=== PATIENT | female | born 1990 | race Caucasian/White ===

== ENCOUNTER → 2016-07-24 | Outpatient (CLI) | payer MEDICAID ==
--- NOTE | 2016-07-24 11:47 | US ---
EXAMINATION: Limited abdominal ultrasound HISTORY: Swelling COMPARISON: None TECHNIQUE: Grayscale, color Doppler, and real-time images obtained of the region of concern. FINDINGS: There is a slightly hypoechoic to isoechoic mass within the region of concern which appear s to have intraperitoneal continuity. There is a trace fluid along the inferior aspect. No abnormal color Doppler flow is noted. Peristalsis is noted to suggest bowel. IMPRESSION: Probable fat-containing periumbilical hernia within the region of concern.
== END | disposition home or self-care (01) ==
LOC: MW.US 08:49
PROVIDERS: ATTEND Physician Assistant
DX: R19.05 Periumbilic swelling, mass or lump (principal)
CPT/HCPCS: 76705; 76705-26

== ENCOUNTER 2016-09-07 08:36 | Day surgery (SDC) | payer MEDICAID ==
[~2016-09-07 08:36] MED LIST: Bupivacaine 0.5% 30 ML SDV ONE; Lactated Ringers 1,000 ML IV SCH; Sodium Chloride 0.9% 10 ML Syringe FLUSH PRN; Sodium Chloride 0.9% 2.5 ML Syringe FLUSH PRN; ceFAZolin 1 GM Vial ONE
[2016-09-07] MEDS ORDERED: Rocuronium 10 MG/ML 10 ML Syringe ONE (09:09)
[2016-09-07] MEDS ORDERED: Propofol 200 MG/20 ML SDV ONE (09:09)
[2016-09-07] MEDS ORDERED: Ondansetron 4 MG/2 ML SDV ONE (09:09)
[2016-09-07] MEDS ORDERED: fentaNYL 250 MCG/5 ML SDV ONE (09:09)
[2016-09-07] MEDS ORDERED: Dexamethasone 4 MG/ML 5 ML MDV ONE (09:09)
[2016-09-07] MEDS ORDERED: Midazolam 1 MG/ML 2 ML SDV ONE (09:09)
--- NOTE | 2016-09-07 09:17 | PCM.PREANE ---
Preanesthetic Assessment - Anesthesia/Transfusion/Family Hx Anesthesia History: Prior Anesthesia Without Reaction Family History of Anesthesia Reaction: No Transfusion History: No Prior Transfusion(s) - Review of Systems General: No Symptoms Pulmonary: No Symptoms Cardiovascular: No Symptoms Gastrointestinal: No symptoms Neurological: No Symptoms Other: Reports: None - Physical Assessment NPO Status Date: 09/06/16 Height: 1.57 m Weight: 73.936 kg ASA Class: 2 Mental Status: Alert & Oriented x3 Airway Class: Mallampati = 1 Dentition: Reports: Normal Dentition ROM/Head Extension: Full Lungs: Clear to auscultation, Normal respiratory effort Cardiovascular: Regular Rate, Regular Rhythm - Lab Values: Laboratory Last Values Urine HCG, Qual NEGATIVE (NEGATIVE) 09/07/16 08:45 - Allergies Allergies/Adverse Reactions: Allergies Allergy/AdvReac Type Severity Reaction Status Date / Time bupropion HCl Allergy Hives Verified 09/04/16 16:51 [From Wellbutrin] - Anesthesia Plan Pre-Op Medication Ordered: None - Acknowledgements Anesthesia Type Planned: General Anesthesia Pt an Appropriate Candidate for the Planned Anesthesia: Yes Alternatives and Risks of Anesthesia Discussed w Pt/Guardian: Yes Pt/Guardian Understands and Agrees with Anesthesia Plan: Yes PreAnesthesia Questionnaire HEENT History: Reports: None Other HEENT History: wears glasses/contacts Cardiovascular History: Reports: None Respiratory History: Reports: None Gastrointestinal History: Reports: None Other Gastrointestinal History: abdominal hernia Genitourinary History: Reports: None SUPPORT DBA History: Reports: None Musculoskeletal History: Reports: None Other Musculoskeletal History: left arm fracture Neurological History: Reports: None Psychiatric History: Reports: None Endocrine/Metabolic History: Reports: None Hematologic History: Reports: None Immunologic History: Reports: None Oncologic (Cancer) History: Reports: None Dermatologic History: Reports: None - Past Surgical History Head Surgeries/Procedures: Reports: None HEENT Surgical History: Reports: Tonsillectomy Cardiovascular Surgical History: Reports: None Respiratory Surgical History: Reports: None GI Surgical History: Reports: Other (See Below) Other GI Surgeries/Procedures: previous laparoscopic umbilical exploration, no hernia found Female Surgical History: Reports: None Endocrine Surgical History: Reports: None Neurological Surgical History: Reports: None Musculoskeletal Surgical History: Reports: None Oncologic Surgical History: Reports: None - SUBSTANCE USE Smoking Status *Q: Current Every Day Smoker Tobacco Use Within Last Twelve Months: Cigarettes Second Hand Smoke Exposure: Yes Recreational Drug Use History: No Recreational Drug Type: Reports: Amphetamines (Speed) (Neg UDS since 06/21/2015, last positive test was May of this year. Does expect to be tested.) - HOME MEDS Home Medications: Home Meds . [No Known Home Meds] 09/04/16 [History] - CURRENT (IN HOUSE) MEDS Current Meds: Current Medications Lactated Ringer's (Ringers, Lactated) 1,000 mls @ 125 mls/hr IV ASDIRECTED MINNIE Last Admin: 09/07/16 09:05 Dose: 125 mls/hr Sodium Chloride (Saline Flush) 10 ml FLUSH ASDIRECTED PRN PRN Reason: Keep Vein Open Sodium Chloride (Saline Flush) 2.5 ml FLUSH ASDIRECTED PRN PRN Reason: Keep Vein Open Discontinued Medications Bupivacaine HCl (Marcaine 0.5%) Confirm Administered Dose 30 ml .ROUTE .STK-MED ONE Stop: 09/07/16 07:18 Cefazolin Sodium (Ancef) Confirm Administered Dose 1 gm .ROUTE .STK-MED ONE Stop: 09/07/16 07:18 Dexamethasone (Dexamethasone) Confirm Administered Dose 20 mg .ROUTE .STK-MED ONE Stop: 09/07/16 09:10 Fentanyl (Sublimaze) Confirm Administered Dose 250 mcg .ROUTE .STK-MED ONE Stop: 09/07/16 09:10 Lidocaine HCl (Xylocaine-Mpf 1%) Confirm Administered Dose 5 ml .ROUTE .STK-MED ONE Stop: 09/07/16 09:10 Midazolam HCl (Versed 1 Mg/Ml) Confirm Administered Dose 2 mg .ROUTE .STK-MED ONE Stop: 09/07/16 09:10 Ondansetron HCl (Zofran) Confirm Administered Dose 4 mg .ROUTE .STK-MED ONE Stop: 09/07/16 09:10 Propofol (Diprivan 20 Ml) Confirm Administered Dose 200 mg .ROUTE .STK-MED ONE Stop: 09/07/16 09:10 Rocuronium Victoria (Zemuron) Confirm Administered Dose 100 mg .ROUTE .STK-MED ONE Stop: 09/07/16 09:10
[2016-09-07] MEDS ORDERED: Ketorolac 30 MG/ML SDV ONE (12:04)
--- NOTE | 2016-09-07 12:23 | PCM.OPNOTE ---
- General Post-Op/Procedure Note Date of Surgery/Procedure: 09/07/16 Operative Procedure(s): Ventral hernia repair Findings: 2.5 x 2 cm supraumbilical ventral hernia Pre Op Diagnosis: umbilical hernia Post-Op Diagnosis: ventral hernia Anesthesia Technique: General ET tube Primary Surgeon: Clary JAMES in mLs: 10 Condition: Good
[2016-09-07] MEDS: fentaNYL 100 MCG/2 ML SDV IVPUSH PRN ×2 (12:29→12:34)
[2016-09-07] MEDS ORDERED: Acetaminophen/oxyCODONE 325-5 MG Tab PO ONE (13:19)
--- NOTE | 2016-09-07 13:28 | PCM.POSTAN ---
POST ANESTHESIA ASSESSMENT - MENTAL STATUS Mental Status: alert, oriented - RESPIRATORY Respiratory Status: respiratory rate WNL, airway patent - CARDIOVASCULAR CV Status: pulse rate WNL, blood pressure stable - GASTROINTESTINAL GI Status: no symptoms - PAIN Pain Score: 4 - POST OP HYDRATION Hydration Status: adequate & stable
--- NOTE | 2016-09-07 14:34 | PCM48HPAN ---
Post Anesthesia Note - EVALUATION WITHIN 48HRS OF ANESTHETIC Vital Signs in Normal Range: Yes Patient Participated in Evaluation: Yes Respiratory Function Stable: Yes Airway Patent: Yes Cardiovascular Function Stable: Yes Hydration Status Stable: Yes Pain Control Satisfactory: Yes Nausea and Vomiting Control Satisfactory: Yes Mental Status Recovered: Yes
[2016-09-07 15:03] VITALS: BP 109/62
--- NOTE | 2016-09-08 02:26 | OR ---
SURGEON: WATSON CHI MD DATE OF PROCEDURE: 09/07/2016 PREOPERATIVE DIAGNOSIS: Umbilical hernia. POSTOPERATIVE DIAGNOSIS: Ventral hernia. PROCEDURE PERFORMED: Supraumbilical ventral hernia repair with mesh. ANESTHESIA: General endotracheal anesthesia. FLUIDS: 2900. ESTIMATED BLOOD LOSS: 10 mL. FINDINGS: Large fat containing supraumbilical ventral hernia. COMPLICATIONS: None. INDICATIONS: The patient is a 26-year-old female, who presents with a supraumbilical mass. The patient had previously undergone an attempted laparoscopic repair, but was not found at the time to have a hernia, so the procedure was aborted. The patient had two more children and the mass has gotten subsequently larger with each . It is now causing her pain on a daily basis. A CT was performed that showed a 3 cm supraumbilical ventral hernia containing omentum that was incarcerated. Decision was made to proceed with operative repair. We discussed the laparoscopic and open approach, however, given her previous laparoscopic attempt, I decided we would perform this open. The patient and I discussed the procedure as well as expected perioperative course. I discussed the risks, including bleeding, infection, or damage to surrounding structures, including perforation. Given the size of the ventral defect on CT, I will most likely be using mesh. The patient verbalized understanding and wishes to proceed. PROCEDURE IN DETAIL: The patient was brought to the operating room and placed on the OR table in supine position. A time-out was completed verifying the patient's name, age, date of , allergies, and procedure to be performed. General endotracheal anesthesia was induced. The abdomen was prepped and draped in usual standard fashion. The upper midline of the abdomen was anesthetized with 0.5% Marcaine plain. A 10 cm incision was made just superior to the umbilicus over the abdominal bulge. Cautery was then used to dissect down into the subcutaneous tissues. I encountered a large fat containing hernia. Using cautery and blunt dissection, I dissected around this mass down to the level of the fascia. Using Metzenbaum scissors, I cleared away the fascia around the base of the hernia neck. Once this was done, I entered the hernia sac and noted there to be preperitoneal fat and omentum in the sac. I attempted to reduce this back into the abdomen, but was unable to do so successfully. Given that I had explored the sac and it only contained fat, the decision was made to transect this instead of trying to reduce it back into the abdomen. A Harmonic Scalpel was used to come across this at the level of the fascia. The hernia sac contained fat were then sent to pathology labeled as hernia sac. The fascial defect was cleared away from any of its underlying attachments. It measured 2 x 2 cm in size. The decision was made to use mesh. A 4 cm Ventralex patch was then brought into the field. This was placed underneath the fascial defect and anchored 1-2 cm back along the fascia using 0 Ethibond sutures. This provided a good underlay with no involvement of any of the intraabdominal structures in the mesh. Once the mesh was secured to the fascia, I then closed the fascial defect with [id number] 0 Ethibond sutures. The wound was then irrigated and hemostasis ensured with cautery. The subcutaneous tissue was closed with interrupted 3-0 Vicryl in the subcutaneous fat and a running 4-0 Monocryl suture in the subcuticular space. Steri-Strips and sterile dressings were applied. All counts were complete and correct at the end of the case. The patient was extubated and taken to PACU in stable condition. JOSE ARAUZ /[id number]
== END 2016-09-07 14:25 | disposition home or self-care (01) ==
LOC: MW.SDS 08:36
PROVIDERS: ATTEND Surgery
DX: K42.9 Umbilical hernia without obstruction or gangrene (principal); E66.3 Overweight; Z88.8 Allergy status to other drugs, medicaments and biological substances; Z72.0 Tobacco use; F17.210 Nicotine dependence, cigarettes, uncomplicated
CPT/HCPCS: 49585; 81025; A9270; C1781; J0690; J1100; J1885; J2250; J2405; J3010; J7120; 00750; 88302; J2704

== ENCOUNTER 2017-10-02 05:02 | Inpatient (IN) | payer MEDICAID ==
[2017-10-02] MEDS ORDERED: Tranexamic Acid 1,000 MG in Sodium Chloride 0.9% 100 ML IV PRN (05:10)
[2017-10-02] MEDS ORDERED: Misoprostol 200 MCG Tab PO PRN (05:10)
[2017-10-02] MEDS ORDERED: Water For Irrigation,Sterile 1,000 ML Container IRR PRN (05:10)
[2017-10-02] MEDS ORDERED: Lidocaine 1% 50 ML MDV INJECT PRN (05:10)
[2017-10-02] MEDS ORDERED: Sodium Chloride 0.9% 2.5 ML Syringe FLUSH PRN (05:10)
[2017-10-02] MEDS ORDERED: Nalbuphine 10 MG/1 ML Vial IVPUSH PRN (05:10)
[2017-10-02] MEDS ORDERED: Sodium Chloride 0.9% 10 ML Syringe FLUSH PRN (05:10)
[2017-10-02] MEDS ORDERED: Carboprost Tromethamine 250 MCG/1 ML Amp IM PRN (05:10)
[2017-10-02] MEDS ORDERED: Methylergonovine 0.2 MG/1 ML Amp IM PRN (05:10)
[2017-10-02] MEDS ORDERED: Oxytocin/0.9 % Sodium Chloride 30 UNIT/500 ML BAG IV SCH ×2 (05:15→15:15)
[2017-10-02] MEDS ORDERED: Terbutaline 1 MG/ML SDV SUBCUT PRN ×2 (06:11→15:15)
[2017-10-02] MEDS ORDERED: Misoprostol 25 MCG (1/4 of 100 MCG) Tab VAG PRN ×2 (06:11→15:15)
[2017-10-02] MEDS ORDERED: Misoprostol 25 MCG (1/4 of 100 MCG) Tab PO ONE (06:13)
[2017-10-02] MEDS ORDERED: Misoprostol 25 MCG (1/4 of 100 MCG) Tab VAG SCH ×2 (06:15→15:15)
[2017-10-02] MEDS ORDERED: Nalbuphine 10 MG/ML 10 ML MDV IVPUSH PRN (07:30)
--- NOTE | 2017-10-02 08:51 | PCM.LDHP ---
L&D History of Present Illness - General Date of Service: 10/02/17 Admit Problem/Dx: Patient Status Order with Admit Dx/Problem 10/02/17 05:10 Patient Status [ADT] Routine Admission Diagnosis/Problem Admission Diagnosis/Problem 10/02/17 08:46 27yo EDC 10/09/2017 39 0/7wk A+, RI, GBS neg. Hx of drug us all UDS neg this . Active smoker Source of Information: Patient History Limitations: Reports: No Limitations - History of Present Illness Improves with: Reports: None Worsens with: Reports: None Associated Symptoms: Reports: N - Related Data Allergies/Adverse Reactions: Allergies Allergy/AdvReac Type Severity Reaction Status Date / Time bupropion HCl Allergy Hives Verified 09/04/16 16:51 [From Wellbutrin] Home Medications: Home Meds . [No Known Home Meds] 09/04/16 [History] Past Medical History HEENT History: Reports: None Other HEENT History: wears glasses/contacts Cardiovascular History: Reports: None Respiratory History: Reports: None Gastrointestinal History: Reports: None Other Gastrointestinal History: abdominal hernia Genitourinary History: Reports: None SVP History: Reports: Musculoskeletal History: Reports: Fracture Other Musculoskeletal History: left arm fracture Neurological History: Reports: None Psychiatric History: Reports: None Endocrine/Metabolic History: Reports: None Hematologic History: Reports: None Immunologic History: Reports: None Oncologic (Cancer) History: Reports: None Dermatologic History: Reports: None - Infectious Disease History Infectious Disease History: Reports: Chicken Pox - Past Surgical History Head Surgeries/Procedures: Reports: None HEENT Surgical History: Reports: Adenoidectomy, Tonsillectomy Cardiovascular Surgical History: Reports: None Respiratory Surgical History: Reports: None GI Surgical History: Reports: Hernia, Abdominal Female Surgical History: Reports: None Endocrine Surgical History: Reports: None Neurological Surgical History: Reports: None Musculoskeletal Surgical History: Reports: None Oncologic Surgical History: Reports: None Social & Family History - Family History HEENT: Reports: None Cardiac: Reports: Hypertension Respiratory: Reports: None GI: Reports: None : Reports: None OBGYN: Reports: Musculoskeletal: Reports: None Neurological: Reports: CVA, Seizure Psychiatric: Reports: None Endocrine/Metabolic: Reports: Diabetes, Type I Hematologic: Reports: None Immunologic: Reports: None Dermatologic: Reports: None Oncologic: Reports: None - Tobacco Use Smoking Status *Q: Current Every Day Smoker Years of Tobacco use: 13 Packs/Tins Daily: 0.5 Used Tobacco, but Quit: No Second Hand Smoke Exposure: Yes - Caffeine Use Caffeine Use: Reports: Soda - Recreational Drug Use Recreational Drug Use: No H&P Review of Systems - Review of Systems: Review Of Systems: See Below General: Reports: No Symptoms HEENT: Reports: No Symptoms Pulmonary: Reports: No Symptoms Cardiovascular: Reports: No Symptoms Gastrointestinal: Reports: No Symptoms Genitourinary: Reports: No Symptoms Musculoskeletal: Reports: No Symptoms Skin: Reports: No Symptoms Psychiatric: Reports: No Symptoms Neurological: Reports: No Symptoms Hematologic/Lymphatic: Reports: No Symptoms Immunologic: Reports: No Symptoms L&D Exam - Exam Exam: See Below - Vital Signs Weight: 84.368 kg - OB Specific Contraction Intensity: Mild to Moderate Movement: Active Heart Tones: Present Heart Rate (FHR) Variability: Moderate (6-25 bmp) Presentation: Vertex - Lee Score Lee Score Cervix Position: Midposition Lee Score Consistency: Soft Lee Score Effacement: 51-70% Lee Score Dilation: 3-4 cm Lee Score 's Station: -2 Lee Score Total: 8 - Exam General: Alert, Oriented, Cooperative HEENT: Hearing Intact Lungs: Clear to Auscultation, Normal Respiratory Effort Cardiovascular: Regular Rate, Regular Rhythm, Normal S1, Normal S2 GI/Abdominal Exam: Normal Bowel Sounds, Soft, Non-Tender, No Organomegaly, No Distention, No Abnormal Bruit, No Mass, Pelvis Stable Rectal Exam: Deferred Genitourinary: Cervical dilitation Back Exam: Normal Inspection, Full Range of Motion Extremities: Normal Inspection, Normal Range of Motion, Non-Tender, No Pedal Edema, Normal Capillary Refill Skin: Warm, Dry, Intact Neurological: Cranial Nerves Intact, Reflexes Equal Bilateral, Strength Equal Bilateral, Normal Gait, Normal Speech, Normal Tone Psychiatric: Alert, Normal Affect, Normal Mood - Patient Data Lab Results Last 24 hrs: Laboratory Results - last 24 hr 10/02/17 10/02/17 Range/Units 05:19 05:19 WBC 18.14 H (4.0-11.0) K/uL RBC 3.80 L (4.30-5.90) M/uL Hgb 12.8 (12.0-16.0) g/dL Hct 36.6 (36.0-46.0) % MCV 96.3 (80.0-98.0) fL MCH 33.7 H (27.0-32.0) pg MCHC 35.0 (31.0-37.0) g/dL RDW Std Deviation 48.7 (28.0-62.0) fl RDW Coeff of Jovita 14 (11.0-15.0) % Plt Count 240 (150-400) K/uL MPV 12.40 H (7.40-12.00) fL Nucleated RBC % 0.0 /100WBC Nucleated RBCs # 0 K/uL Blood Type A POSITIVE Antibody Screen NEGATIVE Result Diagrams: 10/02/17 05:19 - Problem List (1) Supervision of normal IUP (intrauterine ) in multigravida SNOMED Code(s): 909031330, 703943214, 915097077 ICD Code: Z34.80 - ENCOUNTER FOR SUPRVSN OF NORMAL , UNSP TRIMESTER Status: Acute Priority: High Current Visit: Yes Qualifiers: Trimester: third trimester Qualified Code(s): Z34.83 - Encounter for supervision of other normal , third trimester (2) Smoker SNOMED Code(s): 60125793 ICD Code: F17.200 - NICOTINE DEPENDENCE, UNSPECIFIED, UNCOMPLICATED Status : Acute Priority: Medium Current Visit: Yes Problem List Initiated/Reviewed/Updated: Yes Orders Last 24hrs: Active Orders 24 hr Category Date Time Status Patient Status [ADT] Routine ADT 10/02/17 05:10 Active Bedrest Bathroom Privileges [RC] ASDIRECTED Care 10/02/17 06:11 Active Communication Order [RC] ASDIRECTED Care 10/02/17 06:11 Active Communication Order [RC] ASDIRECTED Care 10/02/17 06:11 Active Communication Order [RC] ASDIRECTED Care 10/02/17 06:11 Active Heart Tones [RC] CONTINUOUS Care 10/02/17 05:10 Active May Shower [RC] ASDIRECTED Care 10/02/17 05:10 Active Notify Provider [RC] PRN Care 10/02/17 05:10 Active Notify Provider [RC] PRN Care 10/02/17 06:11 Active Notify Provider [RC] PRN Care 10/02/17 06:11 Active Notify Provider [RC] STAT Care 10/02/17 06:11 Active Oxygen Therapy [RC] ASDIRECTED Care 10/02/17 06:11 Active Up ad Rosanne [RC] ASDIRECTED Care 10/02/17 05:10 Active Vaginal Exam [RC] PRN Care 10/02/17 05:10 Active Vaginal Exam [RC] PRN Care 10/02/17 06:11 Active Vital Signs [RC] PER UNIT ROUTINE Care 10/02/17 05:10 Active Vital Signs [RC] PER UNIT ROUTINE Care 10/02/17 06:11 Active Regular Diet [DIET] Diet 10/02/17 Breakfast Active Carboprost Tromethamine [Hemabate DS] Med 10/02/17 05:10 Active 250 mcg IM ASDIRECTED PRN Lactated Ringers [Ringers, Lactated] 1,000 ml Med 10/02/17 05:15 Active IV ASDIRECTED Lidocaine 1% [Xylocaine 1%] Med 10/02/17 05:10 Active 50 ml INJECT .ONCE PRN Methylergonovine [Methergine] Med 10/02/17 05:10 Active 0.2 mg IM ASDIRECTED PRN Misoprostol [Cytotec] Med 10/02/17 05:10 Active 200 mcg PO .ONCE PRN Misoprostol [Cytotec] Med 10/02/17 06:15 Active 25 mcg VAG .ONCE Misoprostol [Cytotec] Med 10/02/17 06:11 Active 25 mcg VAG Q4H PRN Nalbuphine [Nubain] Med 10/02/17 07:30 Active 10 mg IVPUSH Q1H PRN Oxytocin/0.9 % Sodium Chloride [Oxytocin 30 Unit/500 ML Med 10/02/17 05:15 Active -NS] 30 unit in 500 ml IV TITRATE Sodium Chloride 0.9% [Saline Flush] Med 10/02/17 05:10 Active 10 ml FLUSH ASDIRECTED PRN Sodium Chloride 0.9% [Saline Flush] Med 10/02/17 05:10 Active 2.5 ml FLUSH ASDIRECTED PRN Terbutaline [Brethine] Med 10/02/17 06:11 Active 0.25 mg SUBCUT ASDIRECTED PRN Tranexamic Acid [Cyklokapron] 1,000 mg Med 10/02/17 05:10 Active Sodium Chloride 0.9% [Normal Saline] 100 ml IV ONETIME Water For Irrigation,Sterile [Sterile Water for Med 10/02/17 05:10 Active Irrigation] 1,000 ml IRR ASDIRECTED PRN Scalp Electrode [WOMSER] Per Unit Routine Oth 10/02/17 05:10 Ordered Medication Administration Instruction [OM.PC] Q3H Oth 10/02/17 06:15 Ordered Peripheral IV Insertion Adult [OM.PC] Routine Oth 10/02/17 05:10 Ordered Resuscitation Status Routine Resus Stat 10/02/17 05:10 Ordered Medication Orders Carboprost Tromethamine (Hemabate Ds) 250 mcg IM ASDIRECTED PRN PRN Reason: Post Hemorrhage Lactated Ringer's (Ringers, Lactated) 1,000 mls @ 150 mls/hr IV ASDIRECTED MINNIE Oxytocin/Sodium Chloride (Oxytocin 30 Unit/500 Ml-Ns) 30 unit in 500 mls @ 500 mls/hr IV TITRATE MINNIE Tranexamic Acid 1,000 mg/ (Sodium Chloride) 110 mls @ 660 mls/hr IV ONETIME PRN PRN Reason: Bleeding Lidocaine HCl (Xylocaine 1%) 50 ml INJECT .ONCE PRN PRN Reason: Laceration repair Methylergonovine Maleate (Methergine) 0.2 mg IM ASDIRECTED PRN PRN Reason: Post Hemorrhage Misoprostol (Cytotec) 200 mcg PO .ONCE PRN PRN Reason: Post Hemorrhage Misoprostol (Cytotec) 25 mcg VAG .ONCE MINNIE Last Admin: 10/02/17 06:41 Dose: 25 mcg Misoprostol (Cytotec) 25 mcg VAG Q4H PRN PRN Reason: Cervical Ripening Nalbuphine HCl (Nubain) 10 mg IVPUSH Q1H PRN PRN Reason: Pain (severe 7-10) Sodium Chloride (Saline Flush) 10 ml FLUSH ASDIRECTED PRN PRN Reason: Keep Vein Open Sodium Chloride (Saline Flush) 2.5 ml FLUSH ASDIRECTED PRN PRN Reason: Keep Vein Open Sterile Water (Sterile Water For Irrigation) 1,000 ml IRR ASDIRECTED PRN PRN Reason: delivery Terbutaline Sulfate (Brethine) 0.25 mg SUBCUT ASDIRECTED PRN PRN Reason: Tacysystole Assessment/Plan Comment:: IOL A: 27yo EDC 10/09/2017 39 0/7wk A+, RI, GBS neg. Hx of drug us all UDS neg this . Active smoker P: Admit, Cytotec to pitocin, nicotine transdermal patch, anticipate
[2017-10-02] MEDS ORDERED: Nicotine 14 MG/24 Hr Patch TRDERM SCH (09:00)
[2017-10-02] MEDS: Lactated Ringers 1,000 ML IV SCH ×2 (11:03→14:19)
[2017-10-02] MEDS ORDERED: Bupivacaine 0.25% 10 ML SDV ONE (11:31)
[2017-10-02] MEDS ORDERED: Acetaminophen 500 MG Tab PO ONE (16:45)
--- NOTE | 2017-10-02 18:12 | PCM.DEL ---
L & D Note - General Info Date of Service: 10/02/17 - Delivery Note Labor: Induced by Oxytocin Delivery Outcome: Livebirth Infant Delivery Method: Spontaneous Vaginal Delivery-Single Presentation: Vertex Nuchal Cord: Present Anesthesia Type: Epidural Amniotic Fluid Description: Clear Episiotomy Type: None Laceration: None Placenta: Intact, Spontaneous Cord: 3 Vessels Estimated Blood Loss: 100 Resuscitation Needed: No Induction Criteria - Lee Score Lee Score Dilation: 3-4 cm Lee Score Effacement: 60-70% Lee Score 's Station: -2 Lee Score Consistency: Soft Lee Score Cervix Position: Midposition Lee Score Total: 8 Lee Score Presenting Part: Reports: Cephalic - Induction Gestational Age >/= 39 wks: Yes Estimated Pelvis: Reports: Adequate Reassuring Monitoring Strip: Yes Absence of Tachy Systole: Yes - General Info Date of Service: 10/02/17 Functional Status: Reports: Pain Controlled - Review of Systems General: Reports: No Symptoms HEENT: Reports: No Symptoms Pulmonary: Reports: No Symptoms Cardiovascular: Reports: No Symptoms Gastrointestinal: Reports: No Symptoms Genitourinary: Reports: No Symptoms Musculoskeletal: Reports: No Symptoms Skin: Reports: No Symptoms Neurological: Reports: No Symptoms Psychiatric: Reports: No Symptoms - Patient Data Weight - Most Recent: 84.368 kg Lab Results Last 24 Hours: Laboratory Results - last 24 hr 10/02/17 10/02/17 Range/Units 05:19 05:19 WBC 18.14 H (4.0-11.0) K/uL RBC 3.80 L (4.30-5.90) M/uL Hgb 12.8 (12.0-16.0) g/dL Hct 36.6 (36.0-46.0) % MCV 96.3 (80.0-98.0) fL MCH 33.7 H (27.0-32.0) pg MCHC 35.0 (31.0-37.0) g/dL RDW Std Deviation 48.7 (28.0-62.0) fl RDW Coeff of Jovita 14 (11.0-15.0) % Plt Count 240 (150-400) K/uL MPV 12.40 H (7.40-12.00) fL Nucleated RBC % 0.0 /100WBC Nucleated RBCs # 0 K/uL Blood Type A POSITIVE Antibody Screen NEGATIVE Med Orders - Current: Current Medications Carboprost Tromethamine (Hemabate Ds) 250 mcg IM ASDIRECTED PRN PRN Reason: Post Hemorrhage Lactated Ringer's (Ringers, Lactated) 1,000 mls @ 150 mls/hr IV ASDIRECTED MINNIE Last Admin: 10/02/17 14:19 Dose: 150 mls/hr Oxytocin/Sodium Chloride (Oxytocin 30 Unit/500 Ml-Ns) 30 unit in 500 mls @ 500 mls/hr IV TITRATE MINNIE Tranexamic Acid 1,000 mg/ (Sodium Chloride) 110 mls @ 660 mls/hr IV ONETIME PRN PRN Reason: Bleeding Oxytocin/Sodium Chloride (Oxytocin 30 Unit/500 Ml-Ns) 30 unit in 500 mls @ 2 mls/hr IV TITRATE [facility]; Protocol Last Admin: 10/02/17 16:09 Dose: 2 munits/min, 2 mls/hr Lidocaine HCl (Xylocaine 1%) 50 ml INJECT .ONCE PRN PRN Reason: Laceration repair Methylergonovine Maleate (Methergine) 0.2 mg IM ASDIRECTED PRN PRN Reason: Post Hemorrhage Misoprostol (Cytotec) 200 mcg PO .ONCE PRN PRN Reason: Post Hemorrhage Misoprostol (Cytotec) 25 mcg VAG .ONCE MINNIE Last Admin: 10/02/17 06:41 Dose: 25 mcg Misoprostol (Cytotec) 25 mcg VAG Q4H PRN PRN Reason: Cervical Ripening Misoprostol (Cytotec) 25 mcg VAG .ONCE MINNIE Misoprostol (Cytotec) 25 mcg VAG Q4H PRN PRN Reason: Cervical Ripening Nalbuphine HCl (Nubain) 10 mg IVPUSH Q1H PRN PRN Reason: Pain (severe 7-10) Nicotine (Habitrol) 14 mg TRDERM Q24H MINNIE Last Admin: 10/02/17 10:34 Dose: 14 mg Sodium Chloride (Saline Flush) 10 ml FLUSH ASDIRECTED PRN PRN Reason: Keep Vein Open Sodium Chloride (Saline Flush) 2.5 ml FLUSH ASDIRECTED PRN PRN Reason: Keep Vein Open Sterile Water (Sterile Water For Irrigation) 1,000 ml IRR ASDIRECTED PRN PRN Reason: delivery Terbutaline Sulfate (Brethine) 0.25 mg SUBCUT ASDIRECTED PRN PRN Reason: Tacysystole Terbutaline Sulfate (Brethine) 0.25 mg SUBCUT ASDIRECTED PRN PRN Reason: Tacysystole Discontinued Medications Acetaminophen (Tylenol Extra Strength) 500 mg PO ONETIME ONE Stop: 10/02/17 16:46 Last Admin: 10/02/17 17:05 Dose: 500 mg Bupivacaine HCl (Sensorcaine-Mpf 0.25%) Confirm Administered Dose 10 ml .ROUTE .STK-MED ONE Stop: 10/02/17 11:32 Fentanyl/Bupivacaine HCl ([id number]-Eyxpf-Cd 2 Mcg/Ml-0.125%) Confirm Administered Dose 100 mls @ as directed EP .STK-MED ONE Stop: 10/02/17 11:29 Misoprostol (Cytotec) 25 mcg PO ONETIME ONE Stop: 10/02/17 06:14 Last Admin: 10/02/17 06:41 Dose: 25 mcg Nalbuphine HCl (Nubain) 10 mg IVPUSH Q1H PRN PRN Reason: Pain (severe 7-10) - Exam Quality Assessment: Supplemental Oxygen General: Alert, Oriented HEENT: Pupils Equal, Pupils Reactive, EOMI, Mucous Membr. Moist/[place] Neck: Supple Lungs: Clear to Auscultation, Normal Respiratory Effort Cardiovascular: Regular Rate, Regular Rhythm GI/Abdominal Exam: Normal Bowel Sounds, Soft, Non-Tender, No Organomegaly, No Distention, No Abnormal Bruit, No Mass, Pelvis Stable (Female) Exam: Normal External Exam, Normal Speculum Exam, Normal Bimanual Exam Back Exam: Normal Inspection, Full Range of Motion Extremities: Normal Inspection, Normal Range of Motion, Non-Tender, No Pedal Edema, Normal Capillary Refill Skin: Warm, Dry, Intact Wound/Incisions: Healing Well Neurological: No New Focal Deficit Psy/Mental Status: Alert, Normal Affect, Normal Mood - Problem List & Annotations (1) Supervision of normal IUP (intrauterine ) in multigravida SNOMED Code(s): 478372115, 720636030, 204558272 Code(s): Z34.80 - ENCOUNTER FOR SUPRVSN OF NORMAL , UNSP TRIMESTER Status: Acute Priority: High Current Visit: Yes Qualifiers: Trimester: third trimester Qualified Code(s): Z34.83 - Encounter for supervision of other normal , third trimester (2) (spontaneous vaginal delivery) SNOMED Code(s): 89476126 Code(s): O80 - ENCOUNTER FOR FULL-TERM UNCOMPLICATED DELIVERY Status: Acute Priority: Low Current Visit: No - Problem List Review Problem List Initiated/Reviewed/Updated: Yes - Assessment Assessment:: Assessment: Viable infant male born via at to a 27F now at 39 0/7 weeks gestation. Induced with pitocin. Apgars 8,9 Weight 8lbs 9oz. - Plan Plan:: Plan: Routine care, see orders
[2017-10-02] MEDS ORDERED: Bisacodyl 10 MG Supp RECTAL PRN (18:16)
[2017-10-02] MEDS ORDERED: Acetaminophen 500 MG Tab PO PRN ×2 (18:16)
[2017-10-02] MEDS ORDERED: Docusate Sodium 100 MG Cap PO PRN (18:16)
[2017-10-02] MEDS ORDERED: Witch Hazel Medicated Pads 40/Jar TOP PRN (18:16)
[2017-10-02] MEDS ORDERED: oxyCODONE 5 MG Tab PO PRN (18:16)
[2017-10-02] MEDS ORDERED: Benzocaine/Menthol 20%-0.5% Spray 78 GM Cannister TOP PRN (18:16)
[2017-10-02] MEDS ORDERED: Lanolin 100% Cream 7 GM Tube TOP PRN (18:16)
[2017-10-02] MEDS ORDERED: Ibuprofen 400 MG Tab PO PRN (18:16)
[2017-10-02] MEDS: Ibuprofen 800 MG Tab PO PRN (19:25)
[2017-10-03] MEDS: Ibuprofen 800 MG Tab PO PRN (09:56)
--- NOTE | 2017-10-03 11:00 | PCM.DCSUM1 ---
Discharge Summary - Hospital Course Free Text/Narrative:: Discharge home with . Follow up in 6 weeks for post or sooner if needed. Diagnosis: Stroke: No - Discharge Data Discharge Date: 10/03/17 Discharge Disposition: Home, Self-Care 01 Condition: Good - Discharge Diagnosis/Problem(s) (1) Supervision of normal IUP (intrauterine ) in multigravida SNOMED Code(s): 817139880, 734267751, 852300797 ICD Code: Z34.80 - ENCOUNTER FOR SUPRVSN OF NORMAL , UNSP TRIMESTER Status: Acute Priority: High Current Visit: Yes Qualifiers: Trimester: third trimester Qualified Code(s): Z34.83 - Encounter for supervision of other normal , third trimester (2) Smoker SNOMED Code(s): 29554691 ICD Code: F17.200 - NICOTINE DEPENDENCE, UNSPECIFIED, UNCOMPLICATED Status : Acute Priority: Medium Current Visit: Yes (3) (spontaneous vaginal delivery) SNOMED Code(s): 22912050 ICD Code: O80 - ENCOUNTER FOR FULL-TERM UNCOMPLICATED DELIVERY Status: Acute Priority: High Current Visit: No - Patient Instructions Diet: Usual Diet as Tolerated Activity: As Tolerated, No Strenuous Activities, Rest and Relax Today Driving: May Drive Today Showering/Bathing: May Shower Notify Provider of: Fever, Increased Pain, Swelling and Redness, Nausea and/or Vomiting Other/Special Instructions: Discharge home with . Follow up in 6 weeks for post or sooner if needed. - Discharge Plan Home Medications: Home Meds . [No Known Home Meds] 09/04/16 [History] Referrals: [facility] [Outside] Coco Lauren CNM [Mid-] - 11/14/17 8:30 am - General Info Date of Service: 10/03/17 Admission Dx/Problem (Free Text: Patient Status Order with Admit Dx/Problem 10/02/17 05:10 Patient Status [ADT] Routine Admission Diagnosis/Problem Admission Diagnosis/Problem 10/02/17 08:46 27yo EDC 10/09/2017 39 0/7wk A+, RI, GBS neg. Hx of drug us all UDS neg this . Active smoker Functional Status: Reports: Pain Controlled, Tolerating Diet, Ambulating, Urinating - Review of Systems General: Reports: No Symptoms HEENT: Reports: No Symptoms Pulmonary: Reports: No Symptoms Cardiovascular: Reports: No Symptoms Gastrointestinal: Reports: No Symptoms Genitourinary: Reports: No Symptoms Musculoskeletal: Reports: No Symptoms Skin: Reports: No Symptoms Neurological: Reports: No Symptoms Psychiatric: Reports: No Symptoms - Patient Data Vitals - Most Recent: Last Vital Signs Temp 36.6 C 10/03/17 09:19 Pulse 94 10/03/17 09:19 Resp 16 10/03/17 09:19 BP 120/66 10/03/17 09:19 Pulse Ox 95 10/03/17 09:19 Weight - Most Recent: 84.368 kg Med Orders - Current: Current Medications Acetaminophen (Tylenol Extra Strength) 500 mg PO Q4H PRN PRN Reason: Pain Acetaminophen (Tylenol Extra Strength) 1,000 mg PO Q4H PRN PRN Reason: Pain Benzocaine/Menthol (Dermoplast Pain Relief 20%-0.5% [place]) 78 gm TOP ASDIRECTED PRN PRN Reason: Perineal Comfort Measure Last Admin: 10/02/17 22:08 Dose: 1 container Bisacodyl (Dulcolax) 10 mg RECTAL .ONCE PRN PRN Reason: Constipation Docusate Sodium (Colace) 100 mg PO BID PRN PRN Reason: Constipation Emollient Ointment (Lansinoh Hpa) 0 gm TOP ASDIRECTED PRN PRN Reason: Sore Nipples Ibuprofen (Motrin) 400 mg PO Q4H PRN PRN Reason: Pain Ibuprofen (Motrin) 800 mg PO Q6H PRN PRN Reason: Pain Last Admin: 10/03/17 09:56 Dose: 800 mg Oxycodone HCl (Oxycodone) 5 mg PO Q2H PRN PRN Reason: Pain Witch Angie (Tucks) 1 pad TOP ASDIRECTED PRN PRN Reason: comfort care Last Admin: 10/02/17 22:08 Dose: 1 container Discontinued Medications Acetaminophen (Tylenol Extra Strength) 500 mg PO ONETIME ONE Stop: 10/02/17 16:46 Last Admin: 10/02/17 17:05 Dose: 500 mg Bupivacaine HCl (Sensorcaine-Mpf 0.25%) Confirm Administered Dose 10 ml .ROUTE .STK-MED ONE Stop: 10/02/17 11:32 Carboprost Tromethamine (Hemabate Ds) 250 mcg IM ASDIRECTED PRN PRN Reason: Post Hemorrhage Lactated Ringer's (Ringers, Lactated) 1,000 mls @ 150 mls/hr IV ASDIRECTED MINNIE Last Admin: 10/02/17 14:19 Dose: 150 mls/hr Oxytocin/Sodium Chloride (Oxytocin 30 Unit/500 Ml-Ns) 30 unit in 500 mls @ 500 mls/hr IV TITRATE MINNIE Tranexamic Acid 1,000 mg/ (Sodium Chloride) 110 mls @ 660 mls/hr IV ONETIME PRN PRN Reason: Bleeding Fentanyl/Bupivacaine HCl (Kflgnhmn-Piqlh-Ks 2 Mcg/Ml-0.125%) Confirm Administered Dose 100 mls @ as directed EP .STK-MED ONE Stop: 10/02/17 11:29 Oxytocin/Sodium Chloride (Oxytocin 30 Unit/500 Ml-Ns) 30 unit in 500 mls @ 2 mls/hr IV TITRATE MINNIE; Protocol Last Admin: 10/02/17 16:09 Dose: 2 munits/min, 2 mls/hr Lidocaine HCl (Xylocaine 1%) 50 ml INJECT .ONCE PRN PRN Reason: Laceration repair Methylergonovine Maleate (Methergine) 0.2 mg IM ASDIRECTED PRN PRN Reason: Post Hemorrhage Misoprostol (Cytotec) 200 mcg PO .ONCE PRN PRN Reason: Post Hemorrhage Misoprostol (Cytotec) 25 mcg VAG .ONCE MINNIE Last Admin: 10/02/17 06:41 Dose: 25 mcg Misoprostol (Cytotec) 25 mcg VAG Q4H PRN PRN Reason: Cervical Ripening Misoprostol (Cytotec) 25 mcg PO ONETIME ONE Stop: 10/02/17 06:14 Last Admin: 10/02/17 06:41 Dose: 25 mcg Misoprostol (Cytotec) 25 mcg VAG .ONCE MINNIE Misoprostol (Cytotec) 25 mcg VAG Q4H PRN PRN Reason: Cervical Ripening Nalbuphine HCl (Nubain) 10 mg IVPUSH Q1H PRN PRN Reason: Pain (severe 7-10) Nalbuphine HCl (Nubain) 10 mg IVPUSH Q1H PRN PRN Reason: Pain (severe 7-10) Nicotine (Habitrol) 14 mg TRDERM Q24H MINNIE Last Admin: 10/02/17 10:34 Dose: 14 mg Sodium Chloride (Saline Flush) 10 ml FLUSH ASDIRECTED PRN PRN Reason: Keep Vein Open Sodium Chloride (Saline Flush) 2.5 ml FLUSH ASDIRECTED PRN PRN Reason: Keep Vein Open Sterile Water (Sterile Water For Irrigation) 1,000 ml IRR ASDIRECTED PRN PRN Reason: delivery Terbutaline Sulfate (Brethine) 0.25 mg SUBCUT ASDIRECTED PRN PRN Reason: Tacysystole Terbutaline Sulfate (Brethine) 0.25 mg SUBCUT ASDIRECTED PRN PRN Reason: Tacysystole - Exam General: Reports: Alert, Oriented, Cooperative, No Acute Distress Lungs: Reports: Clear to Auscultation, Normal Respiratory Effort Cardiovascular: Reports: Regular Rate, Regular Rhythm, No Murmurs GI/Abdominal Exam: Normal Bowel Sounds, Soft, Non-Tender, No Organomegaly, No Distention, No Abnormal Bruit, No Mass, Pelvis Stable (Female) Exam: Vaginal Bleeding Rectal (Female) Exam: Deferred Back Exam: Reports: Normal Inspection, Full Range of Motion Extremities: Normal Inspection, Normal Range of Motion, Non-Tender, No Pedal Edema, Normal Capillary Refill Skin: Reports: Warm, Dry, Intact Wound/Incisions: Reports: Healing Well Neurological: Reports: No New Focal Deficit, Normal Gait, Normal Speech, Normal Tone, Strength Equal Bilateral Psy/Mental Status: Reports: Alert, Normal Affect, Normal Mood
[2017-10-03 16:25] VITALS: BP 124/78
== END 2017-10-03 20:00 | disposition home or self-care (01) | DRG 775 ==
LOC: MW.OBCHECK 05:02 → MW.OB 05:05 → MW.OBCHECK 05:10 → MW.OB 05:10 → OBSVTOIN 07:56
PROVIDERS: ADMIT Obstetrics & Gynecology; ATTEND Obstetrics & Gynecology
PROC: 10E0XZZ Delivery of Products of Conception, External Approach (ICD-10-PCS; principal; 2017-10-02)
PROC: 3E033VJ Introduction of Other Hormone into Peripheral Vein, Percutaneous Approach (ICD-10-PCS; 2017-10-02)
PROC: 00HU33Z Insertion of Infusion Device into Spinal Canal, Percutaneous Approach (ICD-10-PCS; 2017-10-02)
DX: O99.334 Smoking (tobacco) complicating childbirth (principal); Z3A.39 39 weeks gestation of pregnancy; Z37.0 Single live birth
CPT/HCPCS: 51702; 59025; 59409; 85027; 86850; 86900; 86901; A9270-GY; J2590; J7120

== ENCOUNTER 2018-08-29 21:23 | Day surgery (SDC) | payer SELFPAY ==
[2018-08-29] MEDS ORDERED: Sodium Chloride 0.9% 2.5 ML Syringe FLUSH PRN (21:48)
[2018-08-29] MEDS ORDERED: Sodium Chloride 0.9% 10 ML Syringe FLUSH PRN (21:48)
[2018-08-29] MEDS ORDERED: Morphine 2 MG/ML Syringe IVPUSH ONE (21:48)
[2018-08-29] MEDS ORDERED: Sodium Chloride 0.9% 1,000 ML IV ONE (21:48)
[2018-08-29] MEDS ORDERED: Ondansetron 4 MG/2 ML SDV IVPUSH ONE (21:48)
--- NOTE | 2018-08-29 21:53 | EDM.PDOC ---
ED HPI GENERAL MEDICAL PROBLEM - General Chief Complaint: Abdominal Pain Stated Complaint: ABD PAIN Time Seen by Provider: 08/29/18 21:42 - History of Present Illness INITIAL COMMENTS - FREE TEXT/NARRATIVE: HISTORY AND PHYSICAL: History of present illness: The patient is a 28 -year-old female who has a history of an umbilical hernia repair in [address] Pacheco and has had one since that time and has had no issues with pain or recurrence of the hernia until about 1-2 hours ago when she suddenly had a lump at her umbilicus which was extremely painful. She's had no forceful activity or lifting no vomiting no fevers chills or other systemic complaints and she's had no abdominal pain prior to these events. She said she did not do anything in particular or do any activity to cause this. She has not had any forceful bowel movements She says the pain radiates around her abdomen but originates at the umbilicus. She's had no chest pain fevers chills or shortness of breath and ate normally earlier today. Patient has had normal bowel movements the last few days Review of systems: As per history of present illness and below otherwise all systems reviewed and negative. Past medical history: As per history of present illness and as reviewed below otherwise noncontributory. Surgical history: As per history of present illness and as reviewed below otherwise noncontributory. Social history: No reported history of drug or alcohol abuse. Family history: As per history of present illness and as reviewed below otherwise noncontributory. Physical exam: General: Well-developed well-nourished mildly overweight female who is nontoxic and vital signs are noted by me. HEENT: Atraumatic, normocephalic, negative for conjunctival pallor or scleral icterus, mucous membranes moist, throat clear, neck supple, nontender, trachea midline. Lungs: Clear to auscultation, breath sounds equal bilaterally, chest nontender. Heart: S1S2, regular rate and rhythm no overt Abdomen: Soft, nondistended, bowel sounds are hypoactive. Negative for masses or hepatosplenomegaly. Negative for costovertebral tenderness. At the umbilicus in the 12 to 1 o'clock position there is a firm large circular grapelike area appreciated which is tense and exquisitely tender and painful to palpation and the patient will not let me manipulate this very much due to discomfort. The surrounding abdomen has only minimal tenderness and there is no rebound and guarding in the surround. Pelvis: Stable nontender. Genitourinary: Deferred. Rectal: Deferred. Extremities: Atraumatic, negative for cords or calf pain. Neurovascular unremarkable. Neuro: Awake, alert, oriented. Cranial nerves II through XII unremarkable. Cerebellum unremarkable. Motor and sensory unremarkable throughout. Exam nonfocal. Diagnostics: CBC CMP lactic acid UA hCG CT scan of the abdomen and pelvis Urine culture Therapeutics: IV fluids morphine Zofran 0037: Testing results were discussed with Dr. Ritchie and he will come in and see the patient. Patient is also aware of the test results and Dr. Ritchie's consult. Please see his note for further details of his evaluation and care plan. Dr. Wnog has reviewed the CT scan and had lengthy discussion with the patient. He is going to take the patient to the operating room this evening for repair of this incarcerated umbilical hernia which he says is different from the prior one that was repaired Impression: Incarcerated umbilical hernia history of a ventral hernia and repair Definitive disposition and diagnosis as appropriate pending reevaluation and review of above. abdomen Pain Score (Numeric/FACES): 9 - Related Data Allergies Allergy/AdvReac Type Severity Reaction Status Date / Time bupropion HCl Allergy Hives Verified 08/29/18 21:41 [From Wellbutrin] Home Meds: Home Meds . [No Known Home Meds] 09/04/16 [History] Past Medical History HEENT History: Reports: None Other HEENT History: wears glasses/contacts Cardiovascular History: Reports: None Respiratory History: Reports: None Gastrointestinal History: Reports: None Other Gastrointestinal History: abdominal hernia Genitourinary History: Reports: None [employer] SERV[employer]ENT History: Reports: Musculoskeletal History: Reports: Fracture Other Musculoskeletal History: left arm fracture Neurological History: Reports: None Psychiatric History: Reports: None Endocrine/Metabolic History: Reports: None Hematologic History: Reports: None Immunologic History: Reports: None Oncologic (Cancer) History: Reports: None Dermatologic History: Reports: None - Infectious Disease History Infectious Disease History: Reports: Chicken Pox - Past Surgical History Head Surgeries/Procedures: Reports: None HEENT Surgical History: Reports: Adenoidectomy, Tonsillectomy Cardiovascular Surgical History: Reports: None Respiratory Surgical History: Reports: None GI Surgical History: Reports: Hernia, Abdominal Female Surgical History: Reports: None Endocrine Surgical History: Reports: None Neurological Surgical History: Reports: None Musculoskeletal Surgical History: Reports: None Oncologic Surgical History: Reports: None Social & Family History - Family History Family Medical History: Noncontributory HEENT: Reports: None Cardiac: Reports: Hypertension Respiratory: Reports: None GI: Reports: None : Reports: None OBGYN: Reports: Musculoskeletal: Reports: None Neurological: Reports: CVA, Seizure Psychiatric: Reports: None Endocrine/Metabolic: Reports: Diabetes, Type I Hematologic: Reports: None Immunologic: Reports: None Dermatologic: Reports: None Oncologic: Reports: None - Tobacco Use Smoking Status *Q: Never Smoker - Caffeine Use Caffeine Use: Reports: Soda - Recreational Drug Use Recreational Drug Use: No ED ROS GENERAL - Review of Systems Review Of Systems: ROS reveals no pertinent complaints other than HPI. ED EXAM, GENERAL - Physical Exam Exam: See Below (See dictation) Course - Vital Signs Last Recorded V/S: Last Vital Signs Temp 36.4 C 08/29/18 21:30 Pulse 92 08/30/18 01:26 Resp 18 08/30/18 01:26 BP 115/70 08/30/18 01:26 Pulse Ox 96 08/30/18 01:26 - Orders/Labs/Meds Orders: Active Orders 24 hr Category Date Time Status Patient Status [ADT] Stat ADT 08/30/18 01:56 Ordered Notify Provider Consults [RC] ASDIRECTED Care 08/30/18 00:38 Inactive CULTURE URINE [RM] Stat Lab 08/29/18 22:10 Received Sodium Chloride 0.9% [Saline Flush] Med 08/29/18 21:48 Active 10 ml FLUSH ASDIRECTED PRN Sodium Chloride 0.9% [Saline Flush] Med 08/29/18 21:48 Active 2.5 ml FLUSH ASDIRECTED PRN Saline Lock Insert [OM.PC] Stat Oth 08/29/18 21:48 Ordered Medication Orders Sodium Chloride (Saline Flush) 10 ml FLUSH ASDIRECTED PRN PRN Reason: Keep Vein Open Sodium Chloride (Saline Flush) 2.5 ml FLUSH ASDIRECTED PRN PRN Reason: Keep Vein Open Labs: Laboratory Tests 08/29/18 08/29/18 08/29/18 Range/Units 21:50 21:50 21:50 WBC 13.12 H (4.0-11.0) K/uL RBC 4.72 (4.30-5.90) M/uL Hgb 16.1 H (12.0-16.0) g/dL Hct 45.5 (36.0-46.0) % MCV 96.4 (80.0-98.0) fL MCH 34.1 H (27.0-32.0) pg MCHC 35.4 (31.0-37.0) g/dL RDW Std Deviation 44.9 (28.0-62.0) fl RDW Coeff of Jovita 13 (11.0-15.0) % Plt Count 335 (150-400) K/uL MPV 10.90 (7.40-12.00) fL Neut % (Auto) 46.4 L (48.0-80.0) % Lymph % (Auto) 39.8 (16.0-40.0) % [place] % (Auto) 6.2 (0.0-15.0) % Eos % (Auto) 7.1 H (0.0-7.0) % Baso % (Auto) 0.5 (0.0-1.5) % Neut # (Auto) 6.1 H (1.4-5.7) K/uL Lymph # (Auto) 5.2 H (0.6-2.4) K/uL [place] # (Auto) 0.8 (0.0-0.8) K/uL Eos # (Auto) 0.9 H (0.0-0.7) K/uL Baso # (Auto) 0.1 (0.0-0.1) K/uL Nucleated RBC % 0.0 /100WBC Nucleated RBCs # 0 K/uL Lactate 0.8 (0.20-2.00) mmol/L Sodium 137 (136-145) mmol/L Potassium 4.2 (3.5-5.1) mmol/L Chloride 104 (98-107) mmol/L Carbon Dioxide 23.9 (21.0-32.0) mmol/L BUN 11 (7.0-18.0) mg/dL Creatinine 0.8 (0.6-1.0) mg/dL Est Cr Clr Drug Dosing 82.80 mL/min Estimated GFR (MDRD) > 60.0 ml/min Glucose 100 (74-106) mg/dL Calcium 9.0 (8.5-10.1) mg/dL Total Bilirubin 0.3 (0.2-1.0) mg/dL AST 16 (15-37) IU/L ALT 24 (14-63) IU/L Alkaline Phosphatase 82 (46-116) U/L Total Protein 7.4 (6.4-8.2) g/dL Albumin 4.1 (3.4-5.0) g/dL Globulin 3.3 (2.6-4.0) g/dL Albumin/Globulin Ratio 1.2 (0.9-1.6) HCG, Quant mIU/mL Urine Color Urine Appearance Urine pH (5.0-8.0) Ur Specific [place] (1.001-1.035) Urine Protein (NEGATIVE) mg/dL Urine Glucose (UA) (NEGATIVE) mg/dL Urine Ketones (NEGATIVE) mg/dL Urine Occult Blood (NEGATIVE) Urine Nitrite (NEGATIVE) Urine Bilirubin (NEGATIVE) Urine Urobilinogen (<2.0) EU/dL Ur Leukocyte Esterase (NEGATIVE) Urine RBC (0-2/HPF) Urine WBC (0-5/HPF) Ur Epithelial Cells (NONE-FEW) Urine Bacteria (NEGATIVE) 08/29/18 08/29/18 Range/Units 21:50 22:10 WBC (4.0-11.0) K/uL RBC (4.30-5.90) M/uL Hgb (12.0-16.0) g/dL Hct (36.0-46.0) % MCV (80.0-98.0) fL MCH (27.0-32.0) pg MCHC (31.0-37.0) g/dL RDW Std Deviation (28.0-62.0) fl RDW Coeff of Jovita (11.0-15.0) % Plt Count (150-400) K/uL MPV (7.40-12.00) fL Neut % (Auto) (48.0-80.0) % Lymph % (Auto) (16.0-40.0) % [place] % (Auto) (0.0-15.0) % Eos % (Auto) (0.0-7.0) % Baso % (Auto) (0.0-1.5) % Neut # (Auto) (1.4-5.7) K/uL Lymph # (Auto) (0.6-2.4) K/uL [place] # (Auto) (0.0-0.8) K/uL Eos # (Auto) (0.0-0.7) K/uL Baso # (Auto) (0.0-0.1) K/uL Nucleated RBC % /100WBC Nucleated RBCs # K/uL Lactate (0.20-2.00) mmol/L Sodium (136-145) mmol/L Potassium (3.5-5.1) mmol/L Chloride (98-107) mmol/L Carbon Dioxide (21.0-32.0) mmol/L BUN (7.0-18.0) mg/dL Creatinine (0.6-1.0) mg/dL Est Cr Clr Drug Dosing mL/min Estimated GFR (MDRD) ml/min Glucose (74-106) mg/dL Calcium (8.5-10.1) mg/dL Total Bilirubin (0.2-1.0) mg/dL AST (15-37) IU/L ALT (14-63) IU/L Alkaline Phosphatase (46-116) U/L Total Protein (6.4-8.2) g/dL Albumin (3.4-5.0) g/dL Globulin (2.6-4.0) g/dL Albumin/Globulin Ratio (0.9-1.6) HCG, Quant 1.0 mIU/mL Urine Color YELLOW Urine Appearance SLT CLOUDY Urine pH 6.0 (5.0-8.0) Ur Specific [place] <= 1.005 (1.001-1.035) Urine Protein NEGATIVE (NEGATIVE) mg/dL Urine Glucose (UA) NEGATIVE (NEGATIVE) mg/dL Urine Ketones NEGATIVE (NEGATIVE) mg/dL Urine Occult Blood NEGATIVE (NEGATIVE) Urine Nitrite NEGATIVE (NEGATIVE) Urine Bilirubin NEGATIVE (NEGATIVE) Urine Urobilinogen 0.2 (<2.0) EU/dL Ur Leukocyte Esterase SMALL H (NEGATIVE) Urine RBC 0-1 (0-2/HPF) Urine WBC 2-5 (0-5/HPF) Ur Epithelial Cells FEW (NONE-FEW) Urine Bacteria RARE (NEGATIVE) Meds: Medications Generic Name Dose Route Start Last Admin Trade Name Josie PRN Reason Stop Dose Admin Sodium Chloride 10 ml 08/29/18 21:48 Saline Flush FLUSH ASDIRECTED PRN Keep Vein Open Sodium Chloride 2.5 ml 08/29/18 21:48 Saline Flush FLUSH ASDIRECTED PRN Keep Vein Open Discontinued Medications Generic Name Dose Route Start Last Admin Trade Name Josie PRN Reason Stop Dose Admin Sodium Chloride 1,000 mls @ 999 mls/hr 08/29/18 21:48 08/29/18 22:04 Normal Saline IV 08/29/18 22:48 999 mls/hr STAT ONE Administration Iopamidol 100 ml 08/29/18 23:32 08/29/18 23:32 Isovue Multipack-370 (76%) IVPUSH 08/29/18 23:33 100 ml ONETIME STA Administration Morphine Sulfate 4 mg 08/29/18 21:48 08/29/18 22:04 Morphine IVPUSH 08/29/18 21:49 4 mg ONETIME ONE Administration Morphine Sulfate 4 mg 08/30/18 00:18 08/30/18 00:28 Morphine IVPUSH 08/30/18 00:19 4 mg ONETIME ONE Administration Ondansetron HCl 4 mg 08/29/18 21:48 08/29/18 22:05 Zofran IVPUSH 08/29/18 21:49 4 mg ONETIME ONE Administration Departure - Departure Time of Disposition: 01:58 Disposition: Still A Patient 30 Condition: Good Clinical Impression: Incarcerated umbilical hernia - Discharge Information Referrals: PCP,None [Primary Care Provider] - Forms: ED Department Discharge - My Orders Last 24 Hours: My Active Orders 08/29/18 21:48 Sodium Chloride 0.9% [Saline Flush] 10 ml FLUSH ASDIRECTED PRN Sodium Chloride 0.9% [Saline Flush] 2.5 ml FLUSH ASDIRECTED PRN Saline Lock Insert [OM.PC] Stat 08/29/18 22:10 CULTURE URINE [RM] Stat 08/30/18 00:38 Notify Provider Consults [RC] ASDIRECTED 08/30/18 01:56 Patient Status [ADT] Stat - Assessment/Plan Last 24 Hours: My Active Orders 08/29/18 21:48 Sodium Chloride 0.9% [Saline Flush] 10 ml FLUSH ASDIRECTED PRN Sodium Chloride 0.9% [Saline Flush] 2.5 ml FLUSH ASDIRECTED PRN Saline Lock Insert [OM.PC] Stat 08/29/18 22:10 CULTURE URINE [RM] Stat 08/30/18 00:38 Notify Provider Consults [RC] ASDIRECTED 08/30/18 01:56 Patient Status [ADT] Stat
[2018-08-29 22:31] LABS: CHLORIDE,CL 104 mmol/L (98-107); SODIUM,NA 137 mmol/L (136-145)
[2018-08-29] MEDS ORDERED: Iopamidol 755 MG/ML 500 ML Multipack Bottle IVPUSH STA (23:32)
--- NOTE | 2018-08-30 00:07 | CT ---
INDICATION: Abdominal pain with bulging in the umbilical region, history of umbilical herniorrhaphy TECHNIQUE: CT abdomen and pelvis acquired with 100 cc Isovue 370 IV contrast. COMPARISON: None FINDINGS: Lower chest: Unremarkable. Liver: Unremarkable. Spleen: Unremarkable. Pancreas: Unremarkable. Gallbladder and bile ducts: Unremarkable. Adrenal glands: Unremarkable. Kidneys: Unremarkable. GI tract: Unremarkable. Appendix is normal. Vascular structures: Unremarkable. Lymph nodes: Unremarkable. Miscellaneous: There is a 1.9 cm, well-circumscribed fluid-filled round structure within the subcutaneous fat immediately cephalad to the umbilicus. Fluid within this structure measures 13 Hounsfield units in density. There is a loop of small bowel which lies directly deep to this structure. Postoperative changes of a ventral herniorrhaphy with mesh placement are seen superior to this area. There is no evidence for bowel obstruction, pneumatosis, or free air. Pelvic Organs: IUD within the uterus. Bones: Unremarkable for age. IMPRESSION: Fluid filled structure within the subcutaneous fat immediately cephalad to the umbilicus. Although a postoperative seroma is favored, a loop of small bowel within a supraumbilical hernia cannot be entirely excluded. Recommend a repeat abdomen pelvis CT after administration of oral contrast material. Note that there is no free air, free fluid, or bowel obstruction. Status post ventral herniorrhaphy with mesh. IUD within the uterus. Please note that all CT scans at this facility use dose modulation, iterative reconstruction, and/or weight-based dosing when appropriate to reduce radiation dose to as low as reasonably achievable. Dictated by Sejal Scherer MD @ Aug 29 2018 11:48PM Signed by Dr. Sejal Scherer @ Aug 30 2018 12:05AM
[2018-08-30] MEDS ORDERED: Morphine 2 MG/ML Syringe IVPUSH ONE (00:18)
[2018-08-30] MEDS ORDERED: Propofol 200 MG/20 ML SDV ONE (02:34)
[2018-08-30] MEDS ORDERED: fentaNYL 250 MCG/5 ML SDV ONE (02:34)
[2018-08-30] MEDS ORDERED: Midazolam 1 MG/ML 2 ML SDV ONE (02:34)
[2018-08-30] MEDS ORDERED: Octyl 2-Cyanoacrylate 1 Tube ONE (02:36)
[2018-08-30] MEDS ORDERED: Bupivacaine 25%/EPINEPHrine/PF 30 ML ONE (02:36)
--- NOTE | 2018-08-30 03:04 | CONS ---
DATE OF CONSULTATION: DATE OF : 1990 PRIMARY CARE PHYSICIAN: None PCP Consult from Dr. Magdalena Escobar in the emergency room. CONCERNING QUESTION: Incarcerated umbilical hernia. HISTORY OF PRESENT ILLNESS: The patient is a 28-year-old lady, status post ventral hernia repair about [address] Pacheco with mesh supraumbilical and complained of 12- hour history of acute onset of supraumbilical pain. Seeked help with the emergency room and shows that it has food and questionable bowel involved involvement. The patient remarked the pain is 10/10. Denied nausea, vomiting, and denies prior history. The patient remarked the pain is only started for 12 hours today and denied lifting heavy weight. However, the patient is a smoker and likely have smoking cough. ALLERGIES: Please refer nursing for details. MEDICATION: Please refer nursing for details. PAST MEDICAL HISTORY: Denied diabetes, UT, CVA, and hypertension. SURGICAL HISTORY: Ventral hernia repair with mesh history, and normal vaginal delivery x5. SOCIAL HISTORY: Current date today smoking. FAMILY HISTORY: Noncontributory. PHYSICAL EXAMINATION: GENERAL: A very pleasant lady, smiled to the doctor, in no acute distress. HEENT: Normocephalic and atraumatic. Sclerae are anicteric. LUNGS: Clear to auscultation. HEART: Regular rate and rhythm. ABDOMEN: Soft and nondistended. No pulsating tender midline abdominal structure. Normal bowel sounds. There is a mass palpable right at the umbilicus, almost at the 12 o'clock position. SKIN: Intact. Exquisite tenderness. Even blowing air to it, the patient feels pain. LABORATORY DATA: White count is 10. IMPRESSION: Incarcerated umbilical hernia with questionable bowel involvement. Even a repeat CAT scan with oral contrast may not be clear. The patient has a possibility of a piece of sidewall that is trapped. The patient would benefit from timely surgery intervention. Also, I discussed with the patient that because of the mesh there the could be a chance that the surgery may get the mesh intact, although the chances is not high. For tonight surgery is an emergent surgery, recurrent repair of the hernia, and also if the bowel is involved the patient will need a bowel resection and possible ostomy. Everything has been discussed. The patient concurred to proceed with surgery. The patient's chance of recurrence is because of the smoking and also recurrence and there is an increased chance recurrence of today's surgery. The patient voiced understanding. VAIBHAV / DAVONTE /[id number]
[2018-08-30] MEDS ORDERED: cefOXitin 2 GM in Premix Bag 1 BAG IV ONE (03:08)
--- NOTE | 2018-08-30 03:29 | PCM.PREANE ---
Preanesthetic Assessment - Procedure Proposed Procedure: umbical hernia repair with possible mesh with possible exploratory laparotomy - Anesthesia/Transfusion/Family Hx Anesthesia History: Prior Anesthesia Without Reaction Family History of Anesthesia Reaction: No Transfusion History: No Prior Transfusion(s) - Review of Systems General: No Symptoms Pulmonary: Other (smoker) Cardiovascular: No Symptoms Gastrointestinal: Nausea, Vomiting Neurological: No Symptoms Other: Reports: None - Physical Assessment NPO Status Date: 08/29/18 NPO Status Time: 19:00 Pulse: 95 O2 Sat by Pulse Oximetry: 96 Respiratory Rate: 18 Blood Pressure: 121/72 Vital Signs: Last Vital Signs Temp 97.5 F 08/29/18 21:30 Pulse 92 08/30/18 01:26 Resp 18 08/30/18 01:26 BP 115/70 08/30/18 01:26 Pulse Ox 96 08/30/18 01:26 Height: 5 ft 2 in Weight: 82 kg ASA Class: 2E Mental Status: Alert & Oriented x3 Airway Class: Mallampati = 2 Dentition: Reports: Normal Dentition Thyro-Mental Finger Breadths: 2 (recessed chin) Mouth Opening Finger Breadths: 3 ROM/Head Extension: Full Lungs: Clear to Auscultation, Normal Respiratory Effort Cardiovascular: Regular Rate, Regular Rhythm - Lab Values: Laboratory Last Values WBC 13.12 K/uL (4.0-11.0) H 08/29/18 21:50 RBC 4.72 M/uL (4.30-5.90) 08/29/18 21:50 Hgb 16.1 g/dL (12.0-16.0) H 08/29/18 21:50 Hct 45.5 % (36.0-46.0) 08/29/18 21:50 MCV 96.4 fL (80.0-98.0) 08/29/18 21:50 MCH 34.1 pg (27.0-32.0) H 08/29/18 21:50 MCHC 35.4 g/dL (31.0-37.0) 08/29/18 21:50 RDW Std Deviation 44.9 fl (28.0-62.0) 08/29/18 21:50 RDW Coeff of Jovita 13 % (11.0-15.0) 08/29/18 21:50 Plt Count 335 K/uL (150-400) 08/29/18 21:50 MPV 10.90 fL (7.40-12.00) 08/29/18 21:50 Neut % (Auto) 46.4 % (48.0-80.0) L 08/29/18 21:50 Lymph % (Auto) 39.8 % (16.0-40.0) 08/29/18 21:50 [place] % (Auto) 6.2 % (0.0-15.0) 08/29/18 21:50 Eos % (Auto) 7.1 % (0.0-7.0) H 08/29/18 21:50 Baso % (Auto) 0.5 % (0.0-1.5) 08/29/18 21:50 Neut # (Auto) 6.1 K/uL (1.4-5.7) H 08/29/18 21:50 Lymph # (Auto) 5.2 K/uL (0.6-2.4) H 08/29/18 21:50 [place] # (Auto) 0.8 K/uL (0.0-0.8) 08/29/18 21:50 Eos # (Auto) 0.9 K/uL (0.0-0.7) H 08/29/18 21:50 Baso # (Auto) 0.1 K/uL (0.0-0.1) 08/29/18 21:50 Nucleated RBC % 0.0 /100WBC 08/29/18 21:50 Nucleated RBCs # 0 K/uL 08/29/18 21:50 Lactate 0.8 mmol/L (0.20-2.00) 08/29/18 21:50 Sodium 137 mmol/L (136-145) 08/29/18 21:50 Potassium 4.2 mmol/L (3.5-5.1) 08/29/18 21:50 Chloride 104 mmol/L (98-107) 08/29/18 21:50 Carbon Dioxide 23.9 mmol/L (21.0-32.0) 08/29/18 21:50 BUN 11 mg/dL (7.0-18.0) 08/29/18 21:50 Creatinine 0.8 mg/dL (0.6-1.0) 08/29/18 21:50 Est Cr Clr Drug Dosing 82.80 mL/min 08/29/18 21:50 Estimated GFR (MDRD) > 60.0 ml/min 08/29/18 21:50 Glucose 100 mg/dL (74-106) 08/29/18 21:50 Calcium 9.0 mg/dL (8.5-10.1) 08/29/18 21:50 Total Bilirubin 0.3 mg/dL (0.2-1.0) 08/29/18 21:50 AST 16 IU/L (15-37) 08/29/18 21:50 ALT 24 IU/L (14-63) 08/29/18 21:50 Alkaline Phosphatase 82 U/L (46-116) 08/29/18 21:50 Total Protein 7.4 g/dL (6.4-8.2) 08/29/18 21:50 Albumin 4.1 g/dL (3.4-5.0) 08/29/18 21:50 Globulin 3.3 g/dL (2.6-4.0) 08/29/18 21:50 Albumin/Globulin Ratio 1.2 (0.9-1.6) 08/29/18 21:50 HCG, Quant 1.0 mIU/mL 08/29/18 21:50 Urine Color YELLOW 08/29/18 22:10 Urine Appearance SLT CLOUDY 08/29/18 22:10 Urine pH 6.0 (5.0-8.0) 08/29/18 22:10 Ur Specific [place] <= 1.005 (1.001-1.035) 08/29/18 22:10 Urine Protein NEGATIVE mg/dL (NEGATIVE) 08/29/18 22:10 Urine Glucose (UA) NEGATIVE mg/dL (NEGATIVE) 08/29/18 22:10 Urine Ketones NEGATIVE mg/dL (NEGATIVE) 08/29/18 22:10 Urine Occult Blood NEGATIVE (NEGATIVE) 08/29/18 22:10 Urine Nitrite NEGATIVE (NEGATIVE) 08/29/18 22:10 Urine Bilirubin NEGATIVE (NEGATIVE) 08/29/18 22:10 Urine Urobilinogen 0.2 EU/dL (<2.0) 08/29/18 22:10 Ur Leukocyte Esterase SMALL (NEGATIVE) H 08/29/18 22:10 Urine RBC 0-1 (0-2/HPF) 08/29/18 22:10 Urine WBC 2-5 (0-5/HPF) 08/29/18 22:10 Ur Epithelial Cells FEW (NONE-FEW) 08/29/18 22:10 Urine Bacteria RARE (NEGATIVE) 08/29/18 22:10 - Allergies Allergies/Adverse Reactions: Allergies Allergy/AdvReac Type Severity Reaction Status Date / Time bupropion HCl Allergy Hives Verified 08/29/18 21:41 [From Wellbutrin] - Blood Blood Available: No Product(s) Available: None - Anesthesia Plan Pre-Op Medication Ordered: None - Acknowledgements Anesthesia Type Planned: General Anesthesia Pt an Appropriate Candidate for the Planned Anesthesia: Yes Alternatives and Risks of Anesthesia Discussed w Pt/Guardian: Yes Pt/Guardian Understands and Agrees with Anesthesia Plan: Yes PreAnesthesia Questionnaire HEENT History: Reports: None Other HEENT History: wears glasses/contacts Cardiovascular History: Reports: None Respiratory History: Reports: None Gastrointestinal History: Reports: None Other Gastrointestinal History: abdominal hernia Genitourinary History: Reports: None KETTLE FIRER History: Reports: Musculoskeletal History: Reports: Fracture Other Musculoskeletal History: left arm fracture Neurological History: Reports: None Psychiatric History: Reports: None Endocrine/Metabolic History: Reports: None Hematologic History: Reports: None Immunologic History: Reports: None Oncologic (Cancer) History: Reports: None Dermatologic History: Reports: None - Infectious Disease History Infectious Disease History: Reports: Chicken Pox - Past Surgical History Head Surgeries/Procedures: Reports: None HEENT Surgical History: Reports: Adenoidectomy, Tonsillectomy Cardiovascular Surgical History: Reports: None Respiratory Surgical History: Reports: None GI Surgical History: Reports: Hernia, Abdominal Female Surgical History: Reports: None Endocrine Surgical History: Reports: None Neurological Surgical History: Reports: None Musculoskeletal Surgical History: Reports: None Oncologic Surgical History: Reports: None - SUBSTANCE USE Smoking Status *Q: Never Smoker Recreational Drug Use History: No - HOME MEDS Home Medications: Home Meds . [No Known Home Meds] 09/04/16 [History] - CURRENT (IN HOUSE) MEDS Current Meds: Current Medications Cefoxitin Sodium 2 gm/ Premix 50 mls @ 100 mls/hr IV ONETIME ONE Stop: 08/30/18 03:37 Sodium Chloride (Saline Flush) 10 ml FLUSH ASDIRECTED PRN PRN Reason: Keep Vein Open Sodium Chloride (Saline Flush) 2.5 ml FLUSH ASDIRECTED PRN PRN Reason: Keep Vein Open Discontinued Medications Fentanyl (Sublimaze) Confirm Administered Dose 250 mcg .ROUTE .STK-MED ONE Stop: 08/30/18 02:35 Sodium Chloride (Normal Saline) 1,000 mls @ 999 mls/hr IV STAT ONE Stop: 08/29/18 22:48 Last Admin: 08/29/18 22:04 Dose: 999 mls/hr Bupivacaine HCl/Epinephrine Bitart (Sensorc Mpf 0.25%-Epi [id number]) Confirm Administered Dose 30 mls @ as directed .ROUTE .STK-MED ONE Stop: 08/30/18 02:37 Iopamidol (Isovue Multipack-370 (76%)) 100 ml IVPUSH ONETIME STA Stop: 08/29/18 23:33 Last Admin: 08/29/18 23:32 Dose: 100 ml Midazolam HCl (Versed 1 Mg/Ml) Confirm Administered Dose 2 mg .ROUTE .STK-MED ONE Stop: 08/30/18 02:35 Morphine Sulfate (Morphine) 4 mg IVPUSH ONETIME ONE Stop: 08/29/18 21:49 Last Admin: 08/29/18 22:04 Dose: 4 mg Morphine Sulfate (Morphine) 4 mg IVPUSH ONETIME ONE Stop: 08/30/18 00:19 Last Admin: 08/30/18 00:28 Dose: 4 mg Octyl Cyanoacrylate (Dermabond Advance) Confirm Administered Dose 1 applic .ROUTE .STK-MED ONE Stop: 08/30/18 02:37 Ondansetron HCl (Zofran) 4 mg IVPUSH ONETIME ONE Stop: 08/29/18 21:49 Last Admin: 08/29/18 22:05 Dose: 4 mg Propofol (Diprivan 20 Ml) Confirm Administered Dose 200 mg .ROUTE .STK-MED ONE Stop: 08/30/18 02:35
[2018-08-30] MEDS ORDERED: fentaNYL 100 MCG/2 ML SDV IVPUSH PRN (03:32)
[2018-08-30] MEDS ORDERED: Ondansetron 4 MG/2 ML SDV IVPUSH ONE (03:32)
[2018-08-30] MEDS ORDERED: HYDROmorphone 2 MG/ML SDV IVPUSH ONE (03:32)
[2018-08-30] MEDS ORDERED: cefOXitin 1 GM Vial ONE (03:33)
[2018-08-30] MEDS ORDERED: Rocuronium 100 MG/10 ML MDV ONE (03:34)
[2018-08-30] MEDS ORDERED: Dexamethasone 4 MG/ML 5 ML MDV ONE (03:34)
[2018-08-30] MEDS ORDERED: Glycopyrrolate 0.2 MG/ML SDV ONE (03:34)
[2018-08-30] MEDS ORDERED: Ondansetron 4 MG/2 ML SDV ONE (03:34)
[2018-08-30] MEDS ORDERED: Succinylcholine 200 MG/10 ML MDV ONE (03:34)
[2018-08-30] MEDS ORDERED: Lactated Ringers 1,000 ML IV SCH (04:30)
--- NOTE | 2018-08-30 04:30 | PCM.OPNOTE ---
- General Post-Op/Procedure Note Date of Surgery/Procedure: 08/30/18 Operative Procedure(s): incarcerated umb hernia repair Findings: small hernia neck, 3 - 4 mm, repaired primarily, no mesh used, and previous mesh was not violated; no bowel encounterd; [id number] Pre Op Diagnosis: incarcerated umb hernia Post-Op Diagnosis: Same Anesthesia Technique: General ET Tube Primary Surgeon: Rios Ritchie Complications: None Condition: Fair
[2018-08-30] MEDS ORDERED: Ondansetron 4 MG/2 ML SDV IVPUSH PRN (04:34)
--- NOTE | 2018-08-30 04:36 | PCM.POSTAN ---
POST ANESTHESIA ASSESSMENT - MENTAL STATUS Mental Status: Alert - VITAL SIGNS Pulse Rate: 88 SaO2: 95 Resp Rate: 18 Blood Pressure: 114/63 Temperature: 36.3 F - RESPIRATORY Respiratory Status: Respiratory Rate WNL, Airway Patent, O2 Saturation Stable - CARDIOVASCULAR CV Status: Pulse Rate WNL, Blood Pressure Stable - GASTROINTESTINAL GI Status: No Symptoms - POST OP HYDRATION Hydration Status: Adequate & Stable
[2018-08-30] MEDS: Acetaminophen/oxyCODONE 325-5 MG Tab PO PRN ×2 (05:27→11:33)
--- NOTE | 2018-08-30 05:28 | OR ---
SURGEON: Rios Ritchie MD DATE OF PROCEDURE: 08/30/2018 PREOPERATIVE DIAGNOSIS: Incarcerated umbilical hernia. POSTOPERATIVE DIAGNOSIS: Incarcerated umbilical hernia. PROCEDURE PERFORMED: Primary repair with no mesh used. FINDINGS: Piece of omentum was trapped in the umbilical hernia. The fascial defect, closed about 3 mm. There was no bowel involved. The previous mesh is not violated. PROCEDURE IN DETAIL: The patient was taken to the operating room and placed in a supine position. Upon induction of general endotracheal anesthesia, the patient's abdomen was prepped and draped in a sterile fashion. Time-out was being called, patient identified, and procedure identified. An Ioban applied and Mefoxin 2 g IV given. Procedure then started. The patient had prior ventral repair with mesh and previous surgical incision was beveled to the right of the umbilicus and carefully dissected out around the stalk of the umbilicus and the hernia was encountered and after delineating the root of the hernia, finally the hernia sac was opened up. There was omentum trapped inside and carefully pushed it back. The hernia sac has already grew out together into the apex of the umbilicus such as it has been quite a while and there was no dusky color and everything pulls back down. The hernia defect measured about 3 to 4 mm. After delineating the edge of the hernia using 0 Ethibond, the hernia defect was repaired and followed with 3-0 Vicryl to tack down the umbilicus and the skin approximated by use of 4- 0 Monocryl and appropriate dressing. The patient was awakened, extubated, and transferred to the recovery in hemodynamically stable condition. The patient tolerated the procedure well. There were no intraoperative complications. Dr. Ritchie was present throughout the whole procedure. During the whole procedure, bowel was not observed and the previous mesh in the neighborhood has not been violated. VAIBHAV / DAVONTE /[id number]
[2018-08-30] MEDS ORDERED: Nicotine 14 MG/24 Hr Patch TRDERM ONE (10:00)
[2018-08-31 07:45] VITALS: BP 114/63
--- NOTE | 2018-08-31 07:45 | PCM48HPAN ---
Post Anesthesia Note - EVALUATION WITHIN 48HRS OF ANESTHETIC Vital Signs in Normal Range: Yes Patient Participated in Evaluation: Yes Respiratory Function Stable: Yes Airway Patent: Yes Cardiovascular Function Stable: Yes Hydration Status Stable: Yes Pain Control Satisfactory: Yes Nausea and Vomiting Control Satisfactory: Yes Mental Status Recovered: Yes Pulse Rate: 88 Resp Rate: 17 Temperature: 2.4 C Blood Pressure: 114/63
== END 2018-08-30 13:15 | disposition home or self-care (01) ==
LOC: MW.ED 21:23 → MW.SDS 08-30 01:55 → MW.MS 08-30 01:56 → MW.SDS 08-30 13:15
PROVIDERS: ATTEND Surgery
DX: K42.0 Umbilical hernia with obstruction, without gangrene (principal); F17.200 Nicotine dependence, unspecified, uncomplicated; Z88.8 Allergy status to other drugs, medicaments and biological substances
CPT/HCPCS: 36415; 49587; 74177; 80053; 81001; 83605; 84702; 85025; 87086; 96361; 96374; 96375; 96376; 99285; A9270; J0330; J0694; J1100; J2001; J2250; J2270; J2405; J2704; J3010; J3490; J7040; J7120; Q9967; 00830

== ENCOUNTER 2020-07-30 10:52 | Day surgery (SDC) | payer BC ==
[~2020-07-30 10:52] MED LIST changes: -Bupivacaine 0.5% 30 ML SDV ONE; +Dexamethasone 4 MG/ML 5 ML MDV ONE; +Glycopyrrolate 0.2 MG/ML SDV ONE; -Lactated Ringers 1,000 ML IV SCH; +Midazolam 1 MG/ML 2 ML SDV ONE; +Ondansetron 4 MG/2 ML SDV ONE; +Propofol 200 MG/20 ML SDV ONE; -Sodium Chloride 0.9% 10 ML Syringe FLUSH PRN; -Sodium Chloride 0.9% 2.5 ML Syringe FLUSH PRN; -ceFAZolin 1 GM Vial ONE; +fentaNYL 100 MCG/2 ML SDV ONE
--- NOTE | 2020-07-30 11:19 | PCM.PREANE ---
Preanesthetic Assessment - Anesthesia/Transfusion/Family Hx Anesthesia History: Prior Anesthesia Without Reaction Family History of Anesthesia Reaction: No Transfusion History: No Prior Transfusion(s) - Review of Systems General: No Symptoms Pulmonary: No Symptoms Cardiovascular: No Symptoms Gastrointestinal: No Symptoms Neurological: No Symptoms Other: Reports: None - Physical Assessment NPO Status Date: 07/30/20 NPO Status Time: 00:01 Height: 5 ft 2 in Weight: 178 lb ASA Class: 2 Mental Status: Alert & Oriented x3 Airway Class: Mallampati = 2 Dentition: Reports: Normal Dentition ROM/Head Extension: Full Lungs: Clear to Auscultation, Normal Respiratory Effort Cardiovascular: Regular Rate, Regular Rhythm - Allergies Allergies/Adverse Reactions: Allergies Allergy/AdvReac Type Severity Reaction Status Date / Time bupropion HCl Allergy Hives Verified 07/28/20 08:21 [From Wellbutrin] - Anesthesia Plan Pre-Op Medication Ordered: None - Acknowledgements Anesthesia Type Planned: General Anesthesia Pt an Appropriate Candidate for the Planned Anesthesia: Yes Alternatives and Risks of Anesthesia Discussed w Pt/Guardian: Yes Pt/Guardian Understands and Agrees with Anesthesia Plan: Yes Additional Comments: npo after mn obesity bmi 31 no cv problems tob '1 PPD etoh weekend beers par no questions PreAnesthesia Questionnaire HEENT History: Reports: Other (See Below) Other HEENT History: wears glasses/contacts Cardiovascular History: Reports: None Respiratory History: Reports: None Gastrointestinal History: Reports: GERD Genitourinary History: Reports: None MASTIC MAN History: Reports: Musculoskeletal History: Reports: Fracture Other Musculoskeletal History: left wrist fracture Neurological History: Reports: None Psychiatric History: Reports: None Endocrine/Metabolic History: Reports: Obesity/BMI 30+ Hematologic History: Reports: None Immunologic History: Reports: None Oncologic (Cancer) History: Reports: None Dermatologic History: Reports: None - Infectious Disease History Infectious Disease History: Reports: Chicken Pox - Past Surgical History Head Surgeries/Procedures: Reports: None HEENT Surgical History: Reports: Adenoidectomy, Oral Surgery, Tonsillectomy Cardiovascular Surgical History: Reports: None Respiratory Surgical History: Reports: None GI Surgical History: Reports: Hernia, Abdominal Other GI Surgeries/Procedures: exploratory laparoscopy, umbilical hernia repair x2 Female Surgical History: Reports: None Endocrine Surgical History: Reports: None Neurological Surgical History: Reports: None Musculoskeletal Surgical History: Reports: None Oncologic Surgical History: Reports: None Dermatological Surgical History: Reports: None - SUBSTANCE USE Tobacco Use Status *Q: Current Every Day Tobacco User Tobacco Use Within Last Twelve Months: Cigarettes - HOME MEDS Home Medications: Home Meds Acetaminophen [Tylenol] 2 tab PO ASDIRECTED PRN 07/28/20 [History] Calcium Carbonate [Tums] 1 tab.chew CHEW ASDIRECTED PRN 07/28/20 [History] - CURRENT (IN HOUSE) MEDS Current Meds: Current Medications Discontinued Medications Dexamethasone (Dexamethasone 4 Mg/Ml 5 Ml Mdv) Confirm Administered Dose 20 mg .ROUTE .STK-MED ONE Stop: 07/30/20 10:07 Fentanyl (Fentanyl 100 Mcg/2 Ml Sdv) Confirm Administered Dose 100 mcg .ROUTE .STK-MED ONE Stop: 07/30/20 10:06 Glycopyrrolate (Glycopyrrolate 0.2 Mg/Ml Sdv) Confirm Administered Dose 0.2 mg .ROUTE .STK-MED ONE Stop: 07/30/20 10:07 Lidocaine HCl (Lidocaine 1% 5 Ml Sdv) Confirm Administered Dose 5 ml .ROUTE .STK-MED ONE Stop: 07/30/20 10:07 Midazolam HCl (Midazolam 1 Mg/Ml 2 Ml Sdv) Confirm Administered Dose 2 mg .ROUTE .STK-MED ONE Stop: 07/30/20 10:07 Ondansetron HCl (Ondansetron 4 Mg/2 Ml Sdv) Confirm Administered Dose 4 mg .ROUTE .STK-MED ONE Stop: 07/30/20 10:06 Propofol (Propofol 200 Mg/20 Ml Sdv) Confirm Administered Dose 400 mg .ROUTE .STK-MED ONE Stop: 07/30/20 10:06
[2020-07-30] MEDS ORDERED: Methylergonovine 0.2 MG/1 ML Amp ONE (11:45)
--- NOTE | 2020-07-30 11:55 | PCM.OPNOTE ---
- General Post-Op/Procedure Note Date of Surgery/Procedure: 07/30/20 Operative Procedure(s): suction D&C Findings: preop uterus boggy 10 weeks size, sounds to 10 cm. postop uterus firm 6 weeks size Pre Op Diagnosis: missed Post-Op Diagnosis: Same Anesthesia Technique: General LMA Primary Surgeon: Bisi Dejesus Anesthesia Provider: Alin Méndez Pathology: products of conception EBL in mLs: 100 Complications: None Known Condition: Good
--- NOTE | 2020-07-30 12:19 | PCM.POSTAN ---
POST ANESTHESIA ASSESSMENT - MENTAL STATUS Mental Status: Alert - VITAL SIGNS Vital Signs: Last Vital Signs Temp 36.4 C 07/30/20 11:56 Pulse 79 07/30/20 12:16 Resp 16 07/30/20 12:16 BP 111/57 L 07/30/20 12:16 Pulse Ox 95 07/30/20 12:16 - RESPIRATORY Respiratory Status: Respiratory Rate WNL - CARDIOVASCULAR CV Status: Pulse Rate WNL - GASTROINTESTINAL GI Status: No Symptoms - POST OP HYDRATION Hydration Status: Adequate & Stable
[2020-07-30 12:43] VITALS: BP 114/64; PULSE 79
--- NOTE | 2020-07-30 13:41 | PCM48HPAN ---
Post Anesthesia Note - EVALUATION WITHIN 48HRS OF ANESTHETIC Vital Signs in Normal Range: Yes Patient Participated in Evaluation: Yes Respiratory Function Stable: Yes Airway Patent: Yes Cardiovascular Function Stable: Yes Hydration Status Stable: Yes Pain Control Satisfactory: Yes Nausea and Vomiting Control Satisfactory: Yes Mental Status Recovered: Yes Vital Signs: Last Vital Signs Temp 36.7 C 07/30/20 12:25 Pulse 79 07/30/20 12:40 Resp 16 07/30/20 12:40 BP 114/64 07/30/20 12:40 Pulse Ox 96 07/30/20 12:40
--- NOTE | 2020-07-30 19:06 | OR ---
SURGEON: Bisi Dejesus M.D. DATE OF PROCEDURE: 07/30/2020 PREOPERATIVE DIAGNOSIS: Missed . POSTOPERATIVE DIAGNOSIS: Missed . PROCEDURE: Suction dilatation and curettage. ANESTHESIA: General LMA. ESTIMATED BLOOD LOSS: 100 mL. FINDINGS: Preoperative uterus 10 weeks size, boggy. Preoperatively sounded to 10 cm. Postoperatively, the uterus was firm, anteverted, and 6-week size with minimal bleeding. COMPLICATIONS: None known. DISPOSITION: Stable to Recovery. BRIEF HISTORY: This is a 30-year-old female. She is G6, P5-0-0-5. She presents having come to her initial OB visit, and dating ultrasound showed a 9-week demise. She was offered options including Cytotec, expectant management, or suction D and C. She desired to proceed with a suction D and C with risks of bleeding, infection, and uterine perforation with injury to surrounding organs such as the bowel, bladder, or blood vessels including a small risk of hysterectomy, small risk of Asherman syndrome, and risk of anesthesia. Understanding all these risks, she does desire to proceed. DESCRIPTION OF PROCEDURE: With the patient in dorsal lithotomy position, under adequate general LMA analgesia, the perineum and vagina were prepped with Betadine and draped in usual fashion for vaginal surgery. SCDs were in place. The bladder had been drained, and an appropriate time-out was held. After draping the perineum, a bimanual examination revealed a 10-week size boggy uterus. Speculum was placed into the vagina. The cervix was grasped with an Allis clamp, and the uterus sounded to 10 cm and the cervix was dilated to a 10 mm Hegar dilator. A 10 mm straight suction curette was placed to the uterine fundus and repetitively turning and retracting the suction curette, blood and tissue were removed until no further blood or tissue were obtained. Sharp curettage was then performed at the 12, 3, 6, and 9 o'clock positions. Suction curettage was repeated, and there was a good uterine cry felt on all surfaces with the sharp curette. Therefore, all the instruments were removed from the vagina. Final sponge, needle, and instrument counts were reported as correct. There were no known complications. The patient was transferred to Recovery in good condition. MACO / DAVONTE /[id number]
== END 2020-07-30 12:57 | disposition home or self-care (01) ==
LOC: MW.SDS 10:52
PROVIDERS: ATTEND Obstetrics & Gynecology
DX: O02.1 Missed abortion (principal); O73.1 Retained portions of placenta and membranes, without hemorrhage; N85.8 Other specified noninflammatory disorders of uterus; F17.210 Nicotine dependence, cigarettes, uncomplicated; E66.9 Obesity, unspecified; Z68.32 Body mass index [BMI] 32.0-32.9, adult; Z91.09 Other allergy status, other than to drugs and biological substances
CPT/HCPCS: 36415; 59820; 85025; 86850; 86900; 86901; J1100; J2210; J2250; J2405; J2704; J3010; J3490; 88305

== ENCOUNTER 2020-12-12 14:33 | Emergency (ER) | payer BC ==
[2020-12-12] MEDS ORDERED: Sodium Chloride 0.9% 2.5 ML Syringe FLUSH PRN (14:42)
[2020-12-12] MEDS ORDERED: Sodium Chloride 0.9% 10 ML Syringe FLUSH PRN (14:42)
--- NOTE | 2020-12-12 14:47 | EDM.PDOC ---
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 She could hardly move and get her groceries put up. Patient had severe spasm in her back. The patient had the work hard to get her groceries into the house because it was so painful to move and walk. The patient had no neurologic deficit in the lower extremities or buttocks. The patient continues to have pain worse with movement. The paramedics gave her fentanyl and Zofran and she continues to have pain when she moves. The patient has no significant back history. She has no dysuria or fever. The patient has no nausea or vomiting. She has no bowel dysfunction. The patient is 14 weeks and has had an ultrasound documenting this is an intrauterine . 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 She has 5 boys. Review of systems: As per history of present illness and below otherwise all systems reviewed and negative. Past medical history: As per history of present illness and as reviewed below otherwise noncontributory. Surgical history: As per history of present illness and as reviewed below otherwise noncontributory. Social history: No reported history of drug or alcohol abuse. Family history: As per history of present illness and as reviewed below otherwise noncontributory. Physical exam: Constitutional - well developed, well-nourished and in no acute distress HEENT - normocephalic, no evidence of trauma - external nose and mouth normal - no mass in neck and no JVD - mucosae moist EYES - full EOM, PERRL, no icterus - no evidence of inflammation, injection, or drainage Respiratory - no respiratory distress, equal bilateral expansion, lungs clear to auscultation and no abnormal lung sounds Cardiovascular - Regular Rhythm with S1 and S2 appreciated and no murmur, gallop or rub. GI - abdomen soft without distension or organomegaly - normal bowel sounds - no guard or rebound Musculoskeletal there is tenderness in the low paraspinous muscles. Patient has pain when a straight leg raise is done mostly on return to the stretcher when she has spasm in the back. No gross deformity of long bones or joints - no tenderness, swelling or edema Neurologic - Alert and oriented times four - CN II-XII grossly intact - motor sensory and coordination symmetrically normal Psychiatric - appropriate mood and affect with normal thought content Hematologic - No petechiae or purpura - mucosa appropriate color and sclera not pale - normal nail bed color and refill Integument - no rash or evidence of trauma - normal turgor Diagnostics: [] Therapeutics: [] Impression: [] Plan: [] Definitive disposition and diagnosis as appropriate pending reevaluation and review of above. Back Pain Score (Numeric/FACES): 4 - Related Data Allergies Allergy/AdvReac Type Severity Reaction Status Date / Time bupropion HCl Allergy Hives Verified 07/30/20 11:29 [From Wellbutrin] Home Meds: Home Meds Acetaminophen [Tylenol] 2 tab PO ASDIRECTED PRN 07/28/20 [History] Calcium Carbonate [Tums] 1 tab.chew CHEW ASDIRECTED PRN 07/28/20 [History] Cyclobenzaprine [Flexeril] 10 mg PO TID PRN #6 tab 12/12/20 [Rx] No122/Iron/Folic Acid [ Multi Tablet] 1 tab PO DAILY 12/12/20 [History] Past Medical History HEENT History: Reports: Other (See Below) Other HEENT History: wears glasses/contacts Cardiovascular History: Reports: None Respiratory History: Reports: None Gastrointestinal History: Reports: GERD Genitourinary History: Reports: None 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: Reports: Musculoskeletal History: Reports: Fracture Other Musculoskeletal History: left wrist fracture Neurological History: Reports: None Psychiatric History: Reports: None Endocrine/Metabolic History: Reports: Obesity/BMI 30+ Hematologic History: Reports: None Immunologic History: Reports: None Oncologic (Cancer) History: Reports: None Dermatologic History: Reports: None - Infectious Disease History Infectious Disease History: Reports: Chicken Pox - Past Surgical History Head Surgeries/Procedures: Reports: None HEENT Surgical History: Reports: Adenoidectomy, Oral Surgery, Tonsillectomy Cardiovascular Surgical History: Reports: None Respiratory Surgical History: Reports: None GI Surgical History: Reports: Hernia, Abdominal Other GI Surgeries/Procedures: exploratory laparoscopy, umbilical hernia repair x2 Female Surgical History: Reports: None Endocrine Surgical History: Reports: None Neurological Surgical History: Reports: None Musculoskeletal Surgical History: Reports: None Oncologic Surgical History: Reports: None Dermatological Surgical History: Reports: None Social & Family History - Family History Family Medical History: No Pertinent Family History HEENT: Reports: None Cardiac: Reports: Hypertension Respiratory: Reports: None GI: Reports: None : Reports: None OBGYN: Reports: Musculoskeletal: Reports: None Neurological: Reports: CVA, Seizure Psychiatric: Reports: None Endocrine/Metabolic: Reports: Diabetes, Type I Hematologic: Reports: None Immunologic: Reports: None Dermatologic: Reports: None Oncologic: Reports: None - Caffeine Use Caffeine Use: Reports: Coffee ED ROS GENERAL - Review of Systems Review Of Systems: Comprehensive ROS is negative, except as noted in HPI. ED EXAM, GENERAL - Physical Exam Exam: See Below Free Text/Narrative:: My physical exam is in the HPI Course - Vital Signs Last Recorded V/S: Last Vital Signs Temp 36.7 C 12/12/20 14:47 Pulse 102 H 12/12/20 14:47 Resp 15 12/12/20 14:47 BP 141/77 H 12/12/20 14:47 Pulse Ox 96 12/12/20 14:47 - Orders/Labs/Meds Orders: Active Orders 24 hr Category Date Time Status Communication Order [RC] STAT Care 12/12/20 14:43 Active Sodium Chloride 0.9% [Saline Flush] Med 12/12/20 14:42 Active 10 ml FLUSH ASDIRECTED PRN Sodium Chloride 0.9% [Saline Flush] Med 12/12/20 14:42 Active 2.5 ml FLUSH ASDIRECTED PRN Saline Lock Insert [OM.PC] Stat Oth 12/12/20 14:43 Ordered Medication Orders Sodium Chloride (Sodium Chloride 0.9% 10 Ml Syringe) 10 ml FLUSH ASDIRECTED PRN PRN Reason: Keep Vein Open Last Admin: 12/12/20 15:00 Dose: 10 ml Documented by: MAGALYS Sodium Chloride (Sodium Chloride 0.9% 2.5 Ml Syringe) 2.5 ml FLUSH ASDIRECTED PRN PRN Reason: Keep Vein Open Last Admin: 12/12/20 15:00 Dose: 2.5 ml Documented by: MAGALYS Labs: Laboratory Tests 12/12/20 12/12/2012/12/21 Range/Units 14:30 14:30 14:30 WBC 11.89 H (4.0-11.0) K/uL RBC 4.12 L (4.30-5.90) M/uL Hgb 13.6 (12.0-16.0) g/dL Hct 38.4 (36.0-46.0) % MCV 93.2 (80.0-98.0) fL MCH 33.0 H (27.0-32.0) pg MCHC 35.4 (31.0-37.0) g/dL RDW Std Deviation 42.2 (28.0-62.0) fl RDW Coeff of Jovita 13 (11.0-15.0) % Plt Count 259 (150-400) K/uL MPV 10.00 (7.40-12.00) fL Neut % (Auto) 65.0 (48.0-80.0) % Lymph % (Auto) 24.3 (16.0-40.0) % [place] % (Auto) 6.1 (0.0-15.0) % Eos % (Auto) 4.3 (0.0-7.0) % Baso % (Auto) 0.3 (0.0-1.5) % Neut # (Auto) 7.7 H (1.4-5.7) K/uL Lymph # (Auto) 2.9 H (0.6-2.4) K/uL [place] # (Auto) 0.7 (0.0-0.8) K/uL Eos # (Auto) 0.5 (0.0-0.7) K/uL Baso # (Auto) 0.0 (0.0-0.1) K/uL Nucleated RBC % 0.0 /100WBC Nucleated RBCs # 0 K/uL Sodium 139 (136-145) mmol/L Potassium 3.6 (3.5-5.1) mmol/L Chloride 104 (98-107) mmol/L Carbon Dioxide 23.3 (21.0-32.0) mmol/L BUN 11 (7.0-18.0) mg/dL Creatinine 0.6 (0.6-1.0) mg/dL Est Cr Clr Drug Dosing 108.43 mL/min Estimated GFR (MDRD) > 60.0 ml/min Glucose 134 H (74-106) mg/dL Calcium 8.4 L (8.5-10.1) mg/dL Total Bilirubin 0.2 (0.2-1.0) mg/dL AST 15 (15-37) IU/L ALT 18 (14-63) IU/L Alkaline Phosphatase 55 (46-116) U/L Total Protein 6.9 (6.4-8.2) g/dL Albumin 2.9 L (3.4-5.0) g/dL Globulin 4.0 (2.6-4.0) g/dL Albumin/Globulin Ratio 0.7 L (0.9-1.6) Progesterone 25.24 NG/ML HCG, Quant 56433.0 mIU/mL Urine Color Urine Appearance Urine pH (5.0-8.0) Ur Specific [place] (1.001-1.035) Urine Protein (NEGATIVE) mg/dL Urine Glucose (UA) (NEGATIVE) mg/dL Urine Ketones (NEGATIVE) mg/dL Urine Occult Blood (NEGATIVE) Urine Nitrite (NEGATIVE) Urine Bilirubin (NEGATIVE) Urine Urobilinogen (<2.0) EU/dL Ur Leukocyte Esterase (NEGATIVE) 12/12/20 Range/Units 15:10 WBC (4.0-11.0) K/uL RBC (4.30-5.90) M/uL Hgb (12.0-16.0) g/dL Hct (36.0-46.0) % MCV (80.0-98.0) fL MCH (27.0-32.0) pg MCHC (31.0-37.0) g/dL RDW Std Deviation (28.0-62.0) fl RDW Coeff of Jovita (11.0-15.0) % Plt Count (150-400) K/uL MPV (7.40-12.00) fL Neut % (Auto) (48.0-80.0) % Lymph % (Auto) (16.0-40.0) % [place] % (Auto) (0.0-15.0) % Eos % (Auto) (0.0-7.0) % Baso % (Auto) (0.0-1.5) % Neut # (Auto) (1.4-5.7) K/uL Lymph # (Auto) (0.6-2.4) K/uL [place] # (Auto) (0.0-0.8) K/uL Eos # (Auto) (0.0-0.7) K/uL Baso # (Auto) (0.0-0.1) K/uL Nucleated RBC % /100WBC Nucleated RBCs # K/uL Sodium (136-145) mmol/L Potassium (3.5-5.1) mmol/L Chloride (98-107) mmol/L Carbon Dioxide (21.0-32.0) mmol/L BUN (7.0-18.0) mg/dL Creatinine (0.6-1.0) mg/dL Est Cr Clr Drug Dosing mL/min Estimated GFR (MDRD) ml/min Glucose (74-106) mg/dL Calcium (8.5-10.1) mg/dL Total Bilirubin (0.2-1.0) mg/dL AST (15-37) IU/L ALT (14-63) IU/L Alkaline Phosphatase (46-116) U/L Total Protein (6.4-8.2) g/dL Albumin (3.4-5.0) g/dL Globulin (2.6-4.0) g/dL Albumin/Globulin Ratio (0.9-1.6) Progesterone NG/ML HCG, Quant mIU/mL Urine Color YELLOW Urine Appearance CLEAR Urine pH 6.5 (5.0-8.0) Ur Specific [place] 1.020 (1.001-1.035) Urine Protein NEGATIVE (NEGATIVE) mg/dL Urine Glucose (UA) NEGATIVE (NEGATIVE) mg/dL Urine Ketones NEGATIVE (NEGATIVE) mg/dL Urine Occult Blood NEGATIVE (NEGATIVE) Urine Nitrite NEGATIVE (NEGATIVE) Urine Bilirubin NEGATIVE (NEGATIVE) Urine Urobilinogen 0.2 (<2.0) EU/dL Ur Leukocyte Esterase NEGATIVE (NEGATIVE) Meds: Medications Generic Name Dose Route Start Last Admin Trade Name Freq PRN Reason Stop Dose Admin Sodium Chloride 10 ml 12/12/20 14:42 12/12/20 15:00 Sodium Chloride 0.9% 10 Ml Syringe FLUSH 10 ml ASDIRECTED PRN Administration Keep Vein Open Sodium Chloride 2.5 ml 12/12/20 14:42 12/12/20 15:00 Sodium Chloride 0.9% 2.5 Ml Syringe FLUSH 2.5 ml ASDIRECTED PRN Administration Keep Vein Open Discontinued Medications Generic Name Dose Route Start Last Admin Trade Name Austenq PRN Reason Stop Dose Admin Cyclobenzaprine HCl 10 mg 12/12/20 16:05 Cyclobenzaprine 10 Mg Tab PO 12/12/20 16:06 ONETIME ONE Departure - Departure Time of Disposition: 16:08 Disposition: Home, Self-Care 01 Condition: Good Clinical Impression: Back spasm, IUP (intrauterine ), incidental - Discharge Information Prescriptions: Cyclobenzaprine [Flexeril] 10 mg PO TID PRN #6 tab PRN Reason: Muscle Spasm - Painful Instructions: Muscle Cramps and Spasms, [id number] Referrals: Bisi Dejesus MD [Primary Care Provider] - Forms: ED Department Discharge Additional Instructions: The doctor on-call for [facility] surgery can use the muscle relaxer for 2 days but should try to stop at the end of 2 days and revert to plain Tylenol. Return immediately if you have loss of feeling of movement in your lower extremities or buttocks. Return immediately if you lose control of your bowel or bladder. [facility] [address] [place] [address] [facility] [address] [place] [address] The following information is given to patients seen in the emergency department who are being discharged to home. This information is to outline your options for follow-up care. We provide all patients seen in our emergency department with a follow-up referral. The need for follow-up, as well as the timing and circumstances, are variable depending upon the specifics of your emergency department visit. If you don't have a primary care physician on staff, we will provide you with a referral. We always advise you to contact your personal physician following an emergency department visit to inform them of the circumstance of the visit and for follow-up with them and/or the need for any referrals to a consulting specialist. The emergency department will also refer you to a specialist when appropriate. This referral assures that you have the opportunity for follow-up care with a specialist. All of these measure are taken in an effort to provide you with optimal care, which includes your follow-up. Under all circumstances we always encourage you to contact your private physician who remains a resource for coordinating your care. When calling for follow-up care, please make the office aware that this follow-up is from your recent emergency room visit. If for any reason you are refused follow-up, please contact the [facility] Emergency Department at and asked to speak to the emergency department charge nurse. Sepsis Event Note (ED) - Focused Exam Vital Signs: Vital Signs Temp Pulse Resp BP Pulse Ox 12/12/20 14:47 36.7 C 102 H 15 141/77 H 96 - My Orders Last 24 Hours: My Active Orders 12/12/20 14:42 Sodium Chloride 0.9% [Saline Flush] 10 ml FLUSH ASDIRECTED PRN Sodium Chloride 0.9% [Saline Flush] 2.5 ml FLUSH ASDIRECTED PRN 12/12/20 14:43 Communication Order [RC] STAT Saline Lock Insert [OM.PC] Stat - Assessment/Plan Last 24 Hours: My Active Orders 12/12/20 14:42 Sodium Chloride 0.9% [Saline Flush] 10 ml FLUSH ASDIRECTED PRN Sodium Chloride 0.9% [Saline Flush] 2.5 ml FLUSH ASDIRECTED PRN 12/12/20 14:43 Communication Order [RC] STAT Saline Lock Insert [OM.PC] Stat
[2020-12-12 15:25] LABS: BLOOD UREA NITROGEN,BUN 11 mg/dL (7.0-18.0); CARBON DIOXIDE,CO2 23.3 mmol/L (21.0-32.0); CHLORIDE,CL 104 mmol/L (98-107); GLUCOSE RANDOM 134 mg/dL (74-106); POTASSIUM,K 3.6 mmol/L (3.5-5.1); SODIUM,NA 139 mmol/L (136-145)
[2020-12-12] MEDS ORDERED: Cyclobenzaprine 10 MG Tab PO ONE (16:05)
[2020-12-12 16:29] VITALS: BP 122/62; PULSE 83
== END 2020-12-12 16:20 | disposition home or self-care (01) ==
LOC: MW.ED 14:33
DX: O99.891 Other specified diseases and conditions complicating pregnancy (principal); M62.830 Muscle spasm of back; O99.212 Obesity complicating pregnancy, second trimester; Z68.36 Body mass index [BMI] 36.0-36.9, adult; Z88.8 Allergy status to other drugs, medicaments and biological substances; Z3A.14 14 weeks gestation of pregnancy
CPT/HCPCS: 36415; 80053; 81003; 84144; 84702; 85025; 99284; A9270

== ENCOUNTER 2021-05-20 06:04 | Observation (INO) | payer BC ==
[2021-05-20] MEDS ORDERED: Sodium Chloride 0.9% 2.5 ML Syringe FLUSH PRN (06:40)
[2021-05-20] MEDS ORDERED: Sodium Chloride 0.9% 10 ML Syringe FLUSH PRN (06:40)
[2021-05-20] MEDS ORDERED: Sodium Chloride 0.9% 20 ML SDV IV PRN (06:40)
[2021-05-20] MEDS ORDERED: Terbutaline 1 MG/ML SDV SUBCUT ONE (06:46)
[2021-05-20] MEDS: Lactated Ringers 1,000 ML IV SCH ×2 (07:11→08:50)
[2021-05-20] MEDS ORDERED: Lidocaine 2% with EPINEPHrine 1:200,000 20 ML SDV ONE (07:22)
== END 2021-05-20 11:45 | disposition home or self-care (01) ==
LOC: MW.OBCHECK 06:04 → MW.OB 06:06 → MW.OBCHECK 06:40
PROVIDERS: ADMIT Obstetrics & Gynecology; ATTEND Obstetrics & Gynecology
DX: O32.1XX0 Maternal care for breech presentation, not applicable or unspecified (principal); O24.420 Gestational diabetes mellitus in childbirth, diet controlled; O99.213 Obesity complicating pregnancy, third trimester; E66.9 Obesity, unspecified; Z88.8 Allergy status to other drugs, medicaments and biological substances; Z91.048 Other nonmedicinal substance allergy status; Z3A.36 36 weeks gestation of pregnancy; Z90.79 Acquired absence of other genital organ(s); Z90.89 Acquired absence of other organs; Z98.890 Other specified postprocedural states; Z87.891 Personal history of nicotine dependence; Z79.899 Other long term (current) drug therapy
CPT/HCPCS: 36415; 51702; 59025; 59412; 76815; 82947; 85025; 86850; 86900; 86901; J3105; J7120

== ENCOUNTER 2021-06-05 05:02 | Inpatient (IN) | payer BC ==
[2021-06-05] MEDS ORDERED: Tranexamic Acid 1,000 MG in Sodium Chloride 0.9% 100 ML IV PRN ×2 (05:28→16:08)
[2021-06-05] MEDS ORDERED: Methylergonovine 0.2 MG/1 ML Amp IM PRN ×2 (05:28→16:08)
[2021-06-05] MEDS ORDERED: Ampicillin 2 GM in Sodium Chloride 0.9% 100 ML IV ONE (05:28)
[2021-06-05] MEDS ORDERED: Misoprostol 200 MCG Tab PO PRN (05:28)
[2021-06-05] MEDS ORDERED: Lidocaine 1% 50 ML MDV INJECT PRN (05:28)
[2021-06-05] MEDS ORDERED: Terbutaline 1 MG/ML SDV SUBCUT PRN (05:28)
[2021-06-05] MEDS ORDERED: Carboprost Tromethamine 250 MCG/1 ML Amp IM PRN (05:28)
[2021-06-05] MEDS ORDERED: Ondansetron 4 MG/2 ML SDV IVPUSH PRN (05:28)
[2021-06-05] MEDS ORDERED: Sodium Chloride 0.9% 2.5 ML Syringe FLUSH PRN (05:28)
[2021-06-05] MEDS ORDERED: Water For Irrigation,Sterile 1,000 ML Container IRR PRN (05:28)
[2021-06-05] MEDS ORDERED: Butorphanol 1 MG/ML SDV IVPUSH PRN (05:28)
[2021-06-05] MEDS ORDERED: Sodium Chloride 0.9% 10 ML Syringe FLUSH PRN (05:28)
[2021-06-05] MEDS ORDERED: Sodium Chloride 0.9% 20 ML SDV IV PRN (05:28)
[2021-06-05] MEDS ORDERED: Oxytocin/0.9 % Sodium Chloride 30 UNIT/500 ML BAG IV SCH ×2 (05:30)
[2021-06-05] MEDS: Lactated Ringers 1,000 ML IV SCH ×4 (05:44→14:38)
[2021-06-05] MEDS: Ampicillin 1 GM in Sodium Chloride 0.9% 100 ML IV SCH ×2 (10:10→14:27)
[2021-06-05] MEDS ORDERED: Ropivacaine 100 ML ONE (11:47)
[2021-06-05] MEDS ORDERED: fentaNYL 100 MCG/2 ML SDV ONE (11:47)
[2021-06-05] MEDS ORDERED: Bisacodyl 10 MG Supp RECTAL PRN (16:08)
[2021-06-05] MEDS ORDERED: Acetaminophen 500 MG Tab PO PRN (16:08)
[2021-06-05] MEDS ORDERED: Docusate Sodium 100 MG Cap PO PRN (16:08)
[2021-06-05] MEDS ORDERED: Witch Hazel Medicated Pads 40/Jar TOP PRN (16:08)
[2021-06-05] MEDS ORDERED: Lanolin 100% Cream 7 GM Tube TOP PRN (16:08)
[2021-06-05] MEDS ORDERED: Benzocaine/Menthol 20%-0.5% Spray 78 GM Cannister TOP PRN (16:08)
[2021-06-05] MEDS ORDERED: Ibuprofen 400 MG Tab PO PRN (16:08)
[2021-06-05] MEDS: Acetaminophen 500 MG Tab PO PRN (18:16)
[2021-06-06] MEDS: Ibuprofen 800 MG Tab PO PRN ×2 (00:24→11:58)
[2021-06-06] MEDS: Acetaminophen 500 MG Tab PO PRN (17:40)
[2021-06-07] MEDS: Acetaminophen 500 MG Tab PO PRN ×2 (00:23→10:41)
[2021-06-07] MEDS: Ibuprofen 800 MG Tab PO PRN ×2 (02:50→10:42)
[2021-06-07 08:06] VITALS: BP 121/71; PULSE 80
== END 2021-06-07 14:28 | disposition home or self-care (01) | DRG 560 ==
LOC: MW.OBCHECK 05:02 → MW.OB 05:03 → MW.OBCHECK 05:28 → MW.OB 05:28 → OBSVTOIN 15:31 → MW.OB 19:17
PROVIDERS: ADMIT Obstetrics & Gynecology; ATTEND Obstetrics & Gynecology
PROC: 10E0XZZ Delivery of Products of Conception, External Approach (ICD-10-PCS; principal; 2021-06-05)
PROC: 3E0P7VZ Introduction of Hormone into Female Reproductive, Via Natural or Artificial Opening (ICD-10-PCS; 2021-06-05)
PROC: 10907ZC Drainage of Amniotic Fluid, Therapeutic from Products of Conception, Via Natural or Artificial Opening (ICD-10-PCS; 2021-06-05)
PROC: 3E0R3BZ Introduction of Anesthetic Agent into Spinal Canal, Percutaneous Approach (ICD-10-PCS; 2021-06-05)
PROC: 00HU33Z Insertion of Infusion Device into Spinal Canal, Percutaneous Approach (ICD-10-PCS; 2021-06-05)
PROC: 3E033VJ Introduction of Other Hormone into Peripheral Vein, Percutaneous Approach (ICD-10-PCS; 2021-06-05)
DX: O24.420 Gestational diabetes mellitus in childbirth, diet controlled (principal); Z37.0 Single live birth; O99.824 Streptococcus B carrier state complicating childbirth; Z3A.39 39 weeks gestation of pregnancy; Z20.822 Contact with and (suspected) exposure to COVID-19
CPT/HCPCS: 01967; 36415; 51702; 59025; 59409; 82803; 82947; 85014; 85018; 85027; 86592; 86850; 86900; 86901; A9270-GY; J0290; J2001; J2590; J2795; J3010; J7120; U0002